=== PATIENT | female | born 1995 | race Caucasian/White ===

== ENCOUNTER 2017-06-22 10:18 | Emergency (ER) | payer BC, MEDICAID ==
[~2017-06-22] VITALS: Ht 154.9 cm; Wt 68.0 kg
[~2017-06-22 10:18] MED LIST: ACHYD1T PO; CEPH250C PO; CEPH500T PO; DCS100C PO; IBP800T PO; METR500T21 PO; MULT-383 PO; NITR-65 PO; PHEN-639 PO; PREN-93 PO
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
[2017-06-22] MEDS ORDERED: HYDROcodone/APAP 5 MG/325 MG (LORTAB) TAB PO STA (12:48)
[2017-06-22] MEDS ORDERED: HYDR-3812 PO (13:02)
[2017-06-22] MEDS ORDERED: CIPR-225 PO (13:02)
[2017-06-22] MEDS ORDERED: CIPROFLOXACIN 500 MG (CIPRO) TABLET PO STA (13:04)
[2017-06-22 13:34] VITALS: BP 127/74
== END 2017-06-22 13:34 | disposition home or self-care (01) ==
LOC: EDUNIT# 10:18 → ER 10:21
DX: S02.40DA Maxillary fracture, left side, initial encounter for closed fracture (principal); S02.2XXA Fracture of nasal bones, initial encounter for closed fracture; S00.81XA Abrasion of other part of head, initial encounter; Z87.891 Personal history of nicotine dependence; Z98.890 Other specified postprocedural states; Y04.2XXA Assault by strike against or bumped into by another person, initial encounter
CPT/HCPCS: 70450; 70486; 72125; 99283

== ENCOUNTER → 2018-05-14 | Outpatient (CLI) | payer BC ==
[~2018-05-14] MED LIST changes: +ACHD5005 PO; +CIPR-225 PO; +METR-197 PO; -METR500T21 PO
--- NOTE | 2018-05-14 11:48 | Diagnostic Imaging Report ---
INDICATION: survey. TECHNIQUE: Multiple real-time grayscale images were obtained over the gravid uterus. COMPARISON: 02/26/2018. FINDINGS: The previous OB ultrasound exam of 02/26/2018 noted a single live intrauterine at approximately 8 weeks 6 days gestation +/-1 week. On this study, the fetus is again visualized. The fetus is in transverse presentation and heart motion was noted with a rate of 138 BPM. The four-chamber heart view however is less than optimal. The lower lumbar spine and the cord insertion were also poorly visualized. I would recommend that a short-term (4-6 week) followup exam be performed for further evaluation. The growth parameters are fairly uniform and have progressed as expected since the prior exam. The placenta is anterior and there is no previa. The amniotic fluid volume is within normal limits. Biometrical measurements are as follows: Biparietal 4.39 cm, age 19 weeks 2 days. Head circumference 17.32 cm, age 20 weeks 0 days. Abdominal circumference 15.55 cm, age 20 weeks 6 days. Femur length 3.18 cm, age 20 weeks 0 days. Sonographic estimate age: 20 weeks 1 days. Sonographic estimated date of delivery: 09/30/18. Estimated Weight: 342 gm (+/- 50 gm). LMP percentile: 69%. heart rate: 138 beats per minute. number: 1 of 1. IMPRESSION: 1. There is a single live fetus at approximately 19 weeks 6 days gestation +/-1 week. The EDC remains October 02, 2018. 2. There were no abnormalities identified but the four-chamber heart view, the cord insertion, and the lower spine were not well visualized. Recommendations, as above. 3. The growth parameters have progressed as expected since the prior exam. Dictated by: Dictated on workstation # [id number]
== END ==
LOC: RAD 09:33
PROVIDERS: ATTEND Family Medicine
DX: Z36.89 Encounter for other specified antenatal screening (principal); Z3A.19 19 weeks gestation of pregnancy
CPT/HCPCS: 76805

== ENCOUNTER → 2018-06-11 | Outpatient (CLI) | payer BC ==
--- NOTE | 2018-06-11 11:37 | Diagnostic Imaging Report ---
INDICATION: Followup survey TECHNIQUE: Multiple real-time grayscale images were obtained over the gravid uterus. COMPARISON: None 02/26/2018 and 05/14/2018 FINDINGS: The previous OB ultrasound exam performed on 05/14/2018 noted a single live fetus approximately 19 weeks 6 days gestation. There were no abnormalities identified but the four-chamber heart view the cord insertion and the lower spine were not well visualized. On this exam the fetus is again visualized. The fetu is now cephalic in presentation. heart motion was noted at a rate of 165 BPM was recorded. There were no abnormalities noted. In particular the four-chamber heart view, cord insertion and the spine are felt to be within normal limits. The growth parameters were not obtained for this exam. The placenta is anterior and there is no previa. The amniotic fluid volume is within normal limits. The cervix was identified measures 5.1 CM in length. IMPRESSION: 1. There is a single live fetus approximately 23 weeks 6 days gestation plus or minus one week. EDC remains 10/02/2018. 2. There were no abnormalities identified. Biometrical measurements are as follows: Biparietal cm, age weeks days. Head circumference cm, age weeks days. Abdominal circumference cm, age weeks days. Femur length cm, age weeks days. Sonographic estimate age: weeks days. Sonographic estimated date of delivery: . Estimated Weight: gm (+/- gm). LMP percentile: %. heart rate: beats per minute. number: of . IMPRESSION: Dictated by: Dictated on workstation # [id number]
== END ==
LOC: RAD 09:31
PROVIDERS: ATTEND Family Medicine
DX: Z36.89 Encounter for other specified antenatal screening (principal); Z3A.23 23 weeks gestation of pregnancy
CPT/HCPCS: 76816

== ENCOUNTER 2018-07-12 09:08 | Outpatient (CLI) | payer BC, MEDICAID ==
--- NOTE | 2018-07-12 09:20 | NUR ---
MIREILLE JOHNSON presented to unit via AMBULATION from HOME, accompanied by S/O, with c/o RH NEGATIVE. MIREILLE JOHNSON weighed, voided, and to bed.
--- NOTE | 2018-07-12 10:10 | NUR ---
RHOGAM ADMINISTERED PER ORDER, NO DISTRESS NOTED, NO QUESTIONS OR CONCERNS NOTED, SEE INTERVENTIONS FOR DOCUMENTATION. PT AMBULATED OFF FLOOR WITH S/O AT SIDE, ROUTINE CARE TO FOLLOW.
--- NOTE | 2018-07-12 10:10 | NUR ---
MIREILLE JOHNSON presented to unit via from ED, accompanied by [], with c/o RH NEGATIVE. MIREILLE JOHNSON weighed, gowned, voided, and to bed. EFHM and TOCO applied, VS taken. MIREILLE JOHNSON oriented to bed controls, call light, TV, heat, and A/C controls. Addendum: 07/12/18 at 1025 by BERNA MENENDEZ RN error, duplicate correct time of arrival 1490
== END 2018-07-12 10:10 | disposition home or self-care (01) ==
LOC: WSo 09:08
PROVIDERS: ATTEND Family Medicine
DX: Z31.82 Encounter for Rh incompatibility status (principal)
CPT/HCPCS: 96372

== ENCOUNTER 2018-09-23 08:39 | Outpatient (CLI) | payer BC, MEDICAID ==
[~2018-09-23] VITALS: Ht 154.9 cm; Wt 104.8 kg
[~2018-09-23 08:39] MED LIST changes: +METR-145 PO; -METR-197 PO
[2018-09-23 08:51] VITALS: BP 127/77
[2018-09-23] MEDS ORDERED: PREN-8 PO (09:09)
[2018-09-26] MEDS ORDERED: DOCU100C37 PO (07:55)
[2018-09-26] MEDS ORDERED: IBUP-1780 PO (07:55)
[2018-09-26] MEDS ORDERED: OXYC1TAB12 PO (07:55)
== END 2018-09-23 09:01 | disposition home or self-care (01) ==
LOC: PREOP 08:39
PROVIDERS: ATTEND Obstetrics & Gynecology
DX: Z01.818 Encounter for other preprocedural examination (principal)
CPT/HCPCS: 87081

== ENCOUNTER 2018-09-25 08:45 | Inpatient (IN) | payer BC, MEDICAID ==
[~2018-09-25] VITALS: Ht 154.9 cm; Wt 105.2 kg
[~2018-09-25 08:45] MED LIST changes: +PREN-8 PO
--- NOTE | 2018-09-25 09:55 | NUR ---
MIREILLE JOHNSON presented to unit via ambulation, accompanied by , for scheduled repeat c/s. Pt weighed, gowned, voided, and to bed. EFHM and TOCO applied, VS taken. Pt. oriented to bed controls, call light, TV, heat, and A/C controls. Addendum: 09/25/18 at 1854 by DAVID KNOX RN error-duplicate entry.
--- NOTE | 2018-09-25 09:55 | NUR ---
MIREILLE JOHNSON presented to unit via ambulation, accompanied by , with c/o previous c/s. Pt. weighed, gowned, voided, and to bed. EFHM and TOCO applied, VS taken. Pt. oriented to bed controls, call light, TV, heat, and A/C controls.
[2018-09-25] MEDS ORDERED: LACTATED RINGERS 1,000 ML IV PRN (10:39)
[2018-09-25] MEDS ORDERED: D5 LR IV SOLUTION 1,000 ML IV SCH (10:41)
[2018-09-25] MEDS ORDERED: FAMOTIDINE 20MG/2ML IV (PEPCID) IV ONE ×2 (10:45→11:45)
[2018-09-25] MEDS ORDERED: metroNIDAZOLE 500MG/100ML IVPB 100 ML IV ONE ×2 (10:45)
[2018-09-25] MEDS ORDERED: ceFAZolin 2 GM IV Premixed 50 ML IV ONE ×2 (10:45→11:00)
[2018-09-25] MEDS ORDERED: CITRIC ACID/SOB CIT (BICITRA) 30 ML UDC PO ONE ×2 (10:45→11:45)
[2018-09-25] MEDS ORDERED: METOCLOPRAMIDE INJ 10 MG/2 ML (REGLAN) IV ONE ×2 (10:45→11:45)
--- NOTE | 2018-09-25 10:59 | NUR ---
#20g IV to Lt.hand x1 attempt by UNA Joshi. site patent, secured with opsite. admission labs collected prior to LR bolus infusing. x2 unsuccessful attempts by this RN.
[2018-09-25 11:09] LABS: BASOPHILS % (AUTO) 0 % (0-10); EOSINOPHILS # (AUTO) 0.1 10^3/uL (0.0-0.3); EOSINOPHILS % (AUTO) 1 % (0-10); HEMATOCRIT 41 % (35-52); HEMOGLOBIN 14.1 G/DL (11.5-16.0); LYMPHOCYTES % (AUTO) 19 % (12-44); MEAN CORPUSCULAR HEMOGLOBIN 29 PG (25-34); MEAN CORPUSCULAR HGB CONC 34 G/DL (32-36); MEAN CORPUSCULAR VOLUME 86 FL (80-99); MEAN PLATELET VOLUME 10.6 FL (7.4-10.4); MONOCYTES # (AUTO) 1.1 X 10^3 (0.0-1.0); MONOCYTES % (AUTO) 10 % (0-12); NEUTROPHILS # (AUTO) 7.4 X 10^3 (1.8-7.8); NEUTROPHILS % (AUTO) 70 % (42-75); PLATELET COUNT 222 10^3/uL (130-400); RED CELL DISTRIBUTION WIDTH 14.7 % (10.0-14.5); WHITE BLOOD COUNT 10.6 10^3/uL (4.3-11.0)
[2018-09-25] MEDS ORDERED: LACTATED RINGERS 1,000 ML IV SCH ×2 (11:36)
[2018-09-25 11:45] VITALS: BP 131/85
[2018-09-25] MEDS ORDERED: BUPIVACAINE SPINAL 0.75% (SENSORCAINE) 2 ML AMP ONE (11:46)
[2018-09-25] MEDS ORDERED: LIDOCAINE PF 2% 5 ML (XYLOCAINE) VIAL ONE (11:46)
[2018-09-25] MEDS ORDERED: OXYTOCIN/NORMAL SALINE 1,000 ML IV ONE (11:46)
[2018-09-25] MEDS ORDERED: fentaNYL INJECTION 100 MCG/2 ML AMP ONE (11:46)
--- NOTE | 2018-09-25 11:46 | NUR ---
pre-op medications given, see eMar for further. here.
--- NOTE | 2018-09-25 12:01 | NUR ---
monitors dc'd. pt ambulated to OB c/s room with OR staff @ side.
[2018-09-25] MEDS ORDERED: ONDANSETRON 4 MG/2 ML (SDV) Z0FRAN ONE (12:33)
[2018-09-25] MEDS ORDERED: BUPIVACAINE 0.5% 30 ML (SENSORCAINE) VIAL ONE (12:34)
[2018-09-25] MEDS ORDERED: PHENYLEPHRINE 100 MCG/ML 10 ML (ANESTHESIA) SYR ONE (12:39)
[2018-09-25] MEDS: KETOROLAC 30 MG/ML VIAL IVP SCH ×2 (12:47→19:54)
[2018-09-25] MEDS ORDERED: KETOROLAC 30 MG/ML VIAL ONE (12:50)
[2018-09-25] MEDS ORDERED: OXYTOCIN/NORMAL SALINE 500 ML IV SCH (13:24)
[2018-09-25] MEDS ORDERED: MEPERIDINE (DEMEROL) INJ 100 MG/ML IM PRN (13:30)
[2018-09-25] MEDS ORDERED: ONDANSETRON 4 MG/2 ML (SDV) Z0FRAN IVP PRN (13:30)
[2018-09-25] MEDS ORDERED: PROMETHAZINE INJ 25 MG/ML (PHENERGAN) AMP IM PRN (13:30)
[2018-09-25] MEDS ORDERED: TETANUS,DIPTH,PERTUSS P/F (BOOSTRIX) 0.5 ML VIAL IM ONE (13:30)
[2018-09-25] MEDS ORDERED: MEASLES,MUMPS,RUBELLA 1 EA INJ SC ONE (13:30)
[2018-09-25] MEDS ORDERED: D5 LR IV SOLUTION 1,000 ML IV ONE (13:32)
--- NOTE | 2018-09-25 15:00 | NUR ---
THIS RN AT BEDSIDE, PHYSICAL ASSESSMENT COMPLETE, PT DENIES NEEDS AT THIS TIME, CALL LIGHT WITHIN REACH.
[2018-09-25 16:00] VITALS: BP 123/59
--- NOTE | 2018-09-25 16:30 | NUR ---
RT AT BEDSIDE FOR IS INSTRUCTIONS. RPT CURRENTLY . RT UNABLE TO DO IS INSTRUCTIONS AT THIS TIME.
--- NOTE | 2018-09-25 18:44 | NUR ---
PT UP TO BATHROOM WITH NO COMPLICATIONS. VOID 900ML. PERICARE PROVIDED.
[2018-09-25] MEDS ORDERED: FLU QUADRIvalent (5+ YOA) 2018-2019 (AFLURIA) 0.5 ML IM ONE (19:00)
--- NOTE | 2018-09-25 19:10 | NUR ---
PT REPORT GIVEN TO BUCK Cristobal RN
[2018-09-25 19:53] VITALS: BP 120/59
--- NOTE | 2018-09-25 21:22 | OPERATIVE REPORT ---
DATE OF SERVICE: 09/25/2018 PREOPERATIVE DIAGNOSIS: Term at 39 weeks' gestation with previous . POSTOPERATIVE DIAGNOSIS: Term at 39 weeks' gestation with previous . OPERATIVE PROCEDURE: Repeat low transverse delivery of a viable male with Apgars of 8 and 9 at 1 and 5 minutes respectively. Weight of 7 pounds 7 ounces. Cord blood pH of 7.34 and a time of 12:27. FLEA MARKET SELLER FOR DELIVERY: Dr. Tran. CENTRAL OFFICE INSTALLER FOR DELIVERY: Dr. Tran. OPERATIVE DESCRIPTION: With the patient in the supine position under satisfactory spinal anesthesia, she was prepped and draped in the usual fashion for abdominal surgery. Cedillo catheter was placed in the urinary bladder. A repeat Pfannenstiel incision was made through the skin with a scalpel at the site of the patient's previous Pfannenstiel incisional scar. The abdomen was entered in the usual manner. Bladder retractor placed in position, clean scalpel used to make a 4 cm hysterotomy incision transversely across the lower uterine segment that was extended by blunt dissection as well, releasing a fair amount of clear amniotic fluid. Gerard forceps were applied to facilitate the delivery of a vigorous viable male . The was bulb suctioned on delivery of the head and again on completion of delivery. The umbilical cord was doubly clamped and cut and then the infant taken to the warmer by Dr. Tran, the car pincher in attendance. Cord bloods were obtained. The placenta was delivered spontaneously Ozuna. It was normal with a 3-vessel cord. The uterus was exteriorized and interior wiped clean with a wet laparotomy sponge. Uterine incision closed with running locked suture of 2-0 Vicryl. Hemostasis was complete. The uterus was returned to the abdominal cavity. All blood clot and debris were removed from the abdominal cavity. With sponge and needle counts correct, hemostasis assured, the anterior parietal peritoneum was closed with a running suture of 2-0 Vicryl. Rectus muscles were closed with that suture as well. Rectus fascia was closed with 2-0 Vicryl, subcutaneous tissue with 2-0 Vicryl and the skin was stapled. Sponge and needle counts were correct on completion of the procedure. Estimated blood loss was around 600 mL. The patient tolerated the procedure well and was transferred to the recovery room in stable condition. The infant had been taken stable to the full term nursery under the care of Dr. Tran. Job ID: [id number] DocumentID: [id number] Dictated Date: 09/25/2018 13:03:15 Tech Intern Date: 09/25/2018 21:21:31 Dictated By: MARK JERNIGAN MD
[2018-09-25] MEDS: DOCUSATE SODIUM 100 MG (COLACE) CAP PO SCH (21:36)
--- NOTE | 2018-09-26 01:00 | NUR ---
Mom is up and walking halls. States that she wanted to get up and walk when she was feeling good. Tolerating well. S.O. at side.
[2018-09-26 01:10] VITALS: BP 113/54
[2018-09-26] MEDS: oxyCODONE/APAP 10/325MG (PERCOCET 10) TABLET PO PRN ×2 (01:10→16:50)
[2018-09-26] MEDS: KETOROLAC 30 MG/ML VIAL IVP SCH (02:00)
[2018-09-26 04:30] VITALS: BP 112/62
--- NOTE | 2018-09-26 07:47 | NUR ---
here to see pt. pending D/C orders received.
--- NOTE | 2018-09-26 07:54 | Progress Note-Standard ---
Standard Progress Note Progress Notes/Assess & Plan Date Seen by a Provider: Sep 26, 2018 Time Seen by a Provider: 07:52 Progress/Assessment & Plan This patient is without complaint. She is ambulating, voiding, tolerating oral intake well and has good pain control. Patient denies chest pain, denies shortness of breath, and denies nausea vomiting. Vital Signs Date Time Temp Pulse Resp B/P (MAP) Pulse Ox O2 Delivery O2 Flow Rate FiO2 09/26/18 04:30 98.9 80 16 112/62 (79) 96 Room Air 09/26/18 01:10 98.8 72 18 113/54 (73) 96 Room Air 09/25/18 19:53 99.1 81 18 120/59 (79) 95 Room Air 09/25/18 19:13 Room Air 09/25/18 16:00 98.4 80 16 123/59 (80) 96 Room Air 09/25/18 11:45 97.1 96 18 131/85 (100) 98 Room Air I & O 09/26/18 07:00 Intake Total 3750 ml Output Total 2490 ml Balance 1260 ml Vital signs are stable. Patient is afebrile. Fundus is firm below the umbilicus and nontender. The surgical incision is clean dry and intact Extremities show no clubbing or cyanosis. There is no Homans sign. Assessment and plan postoperative day number 1 status post 39 week repeat delivery. Patient is doing well and will have routine convalescence care today and consider for discharge home tomorrow MARK JERNIGAN MD Sep 26, 2018 07:54
[2018-09-26] MEDS ORDERED: DOCU100C37 PO (07:55)
[2018-09-26] MEDS ORDERED: OXYC1TAB12 PO (07:55)
[2018-09-26] MEDS ORDERED: IBUP-1780 PO (07:55)
--- NOTE | 2018-09-26 07:57 | Discharge Instructions ---
Discharge Instructions Discharge Medications New, Converted or Re-Newed RX: RX on Chart Patient Instructions Patient Instructions: As directed Return to The Hospital For: as directed Activity & Diet Discharge Diet: No Restrictions Activity as Tolerated: No Orders-Post D/C & Referrals Follow Up Appt: RTC 1 week for incision check with Dr. Valdez Call to make follow up appt. for patient in [address] Tran. Wound Care: Remove rebecca, apply benzoin and steri strips. Activity Per routine post instructions. Please call in RX to patient pharmacy. Diet as tolerated Patient may shower or tub bathe as desired. Continue home meds MARK VALDEZ MD Sep 26, 2018 07:57
[2018-09-26] MEDS ORDERED: IBUPROFEN 800 MG (MOTRIN) TAB PO ONE (09:09)
[2018-09-26] MEDS: DOCUSATE SODIUM 100 MG (COLACE) CAP PO SCH ×2 (09:12→21:36)
[2018-09-26] MEDS: IBUPROFEN 800 MG (MOTRIN) TAB PO SCH ×3 (09:13→20:04)
--- NOTE | 2018-09-26 09:15 | NUR ---
initial shift assessment completed, see interventions for further. abd incision ADILENE with clips D/I. incision edges well approximated, no sx's of infection noted.
[2018-09-26 14:10] VITALS: BP 119/67
--- NOTE | 2018-09-26 14:10 | NUR ---
vs taken. infant attempting to breast feed.
--- NOTE | 2018-09-26 14:11 | NUR ---
Rhogam IM given in Lt.AT.
--- NOTE | 2018-09-26 14:19 | Anesthesia-Regional Post-Op ---
Regional Patient Condition Mental Status: Alert, Oriented x3 Circulation: Same as Pre-Op Headache: Absent Sensation: Full Recovery Motor Block: Absent Post Op Complications Complications None Follow Up Care/Instructions Patient Instructions None needed. Anesthesia/Patient Condition Patient is doing well, no complaints, stable vital signs, no apparent adverse anesthesia problems. No complications reported per nursing. KVNG CRUZ CRNA Sep 26, 2018 14:19
--- NOTE | 2018-09-26 16:50 | NUR ---
Percocet 2 tabs p.o. given per pt's request for incisional pain. remains @ side.
--- NOTE | 2018-09-26 19:30 | NUR ---
report given to next shift.
[2018-09-26 20:08] VITALS: BP 136/73
[2018-09-26] MEDS ORDERED: FLU QUADRIvalent (5+ YOA) 2018-2019 (AFLURIA) 0.5 ML IM ONE (21:26)
[2018-09-26] MEDS ORDERED: TETANUS,DIPTH,PERTUSS P/F (BOOSTRIX) 0.5 ML VIAL IM ONE (21:26)
[2018-09-27] MEDS: IBUPROFEN 800 MG (MOTRIN) TAB PO SCH (01:56)
[2018-09-27 02:00] VITALS: BP 121/64
--- NOTE | 2018-09-27 07:53 | Progress Note-Standard ---
Standard Progress Note Progress Notes/Assess & Plan Date Seen by a Provider: Sep 27, 2018 Time Seen by a Provider: 07:52 Progress/Assessment & Plan This patient is without complaint. She is ambulating, voiding, tolerating oral intake well and has good pain control. Patient denies chest pain, denies shortness of breath, and denies nausea vomiting. Vital Signs Date Time Temp Pulse Resp B/P (MAP) Pulse Ox O2 Delivery O2 Flow Rate FiO2 09/26/18 04:30 98.9 80 16 112/62 (79) 96 Room Air 09/26/18 01:10 98.8 72 18 113/54 (73) 96 Room Air 09/25/18 19:53 99.1 81 18 120/59 (79) 95 Room Air 09/25/18 19:13 Room Air 09/25/18 16:00 98.4 80 16 123/59 (80) 96 Room Air 09/25/18 11:45 97.1 96 18 131/85 (100) 98 Room Air I & O 09/26/18 07:00 Intake Total 3750 ml Output Total 2490 ml Balance 1260 ml Vital signs are stable. Patient is afebrile. Fundus is firm below the umbilicus and nontender. The surgical incision is clean dry and intact Extremities show no clubbing or cyanosis. There is no Homans sign. Assessment and plan postoperative day number 1 status post 39 week repeat delivery. Patient is doing well and will have routine convalescence care today and consider for discharge home tomorrow September 27, 2018 Patient without complaint. She is ambulating, voiding, tolerating oral intake well has good pain control. Patient is ready requesting discharge home. Vital Signs Date Time Temp Pulse Resp B/P (MAP) Pulse Ox O2 Delivery O2 Flow Rate FiO2 09/27/18 02:00 98.4 71 16 121/64 (83) 96 Room Air 09/26/18 20:08 98.4 88 16 136/73 (94) 96 Room Air 09/26/18 14:10 98.0 83 18 119/67 (84) 96 Room Air I & O 09/27/18 07:00 Intake Total 900 ml Output Total 1600 ml Balance -700 ml Vital signs are stable. Patient afebrile. Fundus is firm below the umbilicus and nontender. The incision is clean dry and intact. Extremities show no clubbing cyanosis. There is no Homans sign. Assessment and plan postoperative day number 2 status post repeat delivery at 39+ weeks' gestation. Patient will be discharged home with follow- up in clinic MARK JERNIGAN MD Sep 27, 2018 07:53
[2018-09-27 08:00] VITALS: BP 116/68
[2018-09-27] MEDS: DOCUSATE SODIUM 100 MG (COLACE) CAP PO SCH (08:22)
--- NOTE | 2018-09-27 10:45 | NUR ---
Discharged to home. Pt ambulated to exit, father of baby carrying baby in car seat. Chest strap tightened. Prescription, instructions and appointment with pt.
--- NOTE | 2018-10-02 11:59 | Physician Query-Final Dx ---
LELIA COWART 10/02/18 1159: Final Diagnosis Give Final Diagnosis Please give Final Diagnosis MARK JERNIGAN MD 10/02/18 1426: Final Diagnosis Give Final Diagnosis Pelvic pain and LELIA COWART Oct 02, 2018 11:59 MARK JERNIGAN MD Oct 02, 2018 14:26
== END 2018-09-27 11:45 | disposition home or self-care (01) | DRG 788 ==
LOC: LDRP 09:55
PROVIDERS: ADMIT Obstetrics & Gynecology; ATTEND Obstetrics & Gynecology
PROC: 10D00Z1 Extraction of Products of Conception, Low, Open Approach (ICD-10-PCS; principal; 2018-09-25 12:03)
DX: O34.211 Maternal care for low transverse scar from previous cesarean delivery (principal); Z3A.39 39 weeks gestation of pregnancy; Z37.0 Single live birth; Z87.891 Personal history of nicotine dependence; Z88.1 Allergy status to other antibiotic agents
CPT/HCPCS: 36415; 83033; 85025; 86850; 86900; 86901; 88307; 90686; 90715; 94664

== ENCOUNTER 2018-10-25 05:07 | Emergency (ER) | payer BC, MEDICAID ==
[~2018-10-25] VITALS: Ht 154.9 cm; Wt 89.8 kg
[~2018-10-25 05:07] MED LIST changes: +DOCU100C37 PO; +IBUP-1780 PO; +OXYC1TAB12 PO
--- NOTE | 2018-10-25 05:42 | ED Upper Extremity ---
General Stated Complaint: RT HAND INJURY Source: patient History of Present Illness Date Seen by Provider: Oct 25, 2018 Time Seen by Provider: 05:35 Initial Comments PT ARRIVES VIA POV STATES SHE GOT UP AT 0445 TO GO TO THE BATHROOM, STUBBED HER TOE, THEN GOT MAD BECAUSE SHE STUBBED HER TOE, SO SHE PUNCHED THE WALL WITH HER RIGHT HAND NOW C/O PAIN AND SWELLING TO RIGHT HAND OVER 5TH METACARPAL AREA NO C/O PAIN TO TOE AT THIS TIME NO PARESTHESIAS OR MOTOR DEFICITS NO PRIOR INJURY TO THIS HAND PT IS RIGHT HANDED PT DELIVERED 4 WEEKS AGO VIA STILL SPOTTING OFF AND ON NO CONTROL PT IS PCP: DR. MCBRIDE Allergies and Home Medications Allergies Coded Allergies: Penicillins (Unverified Allergy, Unknown, 03/05/16) Reports that her brother is allergic, so she doesn't want to take a chance with it. Home Medications Hydrocodone Bit/Acetaminophen 1 Tab Tab, 1 EACH PO Q4H PRN for PAIN-MODERATE Prescribed by: JAMES BIANCHI on 10/25/18 0550 Ibuprofen 800 Mg Tablet, 800 MG PO Q6H Prescribed by: MARK LAZCANO on 09/26/18 0755 Patient Home Medication List Home Medication List Reviewed: Yes Review of Systems Constitutional: no symptoms reported Musculoskeletal: see HPI Skin: no symptoms reported Psychiatric/Neurological: No Symptoms Reported Past Jtkdrhi-Hclgjz-Kkcule Hx Patient Social History Smoking Status: Current Everyday Smoker Type Used: Cigarettes Recent Foreign Travel: No Contact w/Someone Who Travel: No Recent Hopitalizations: No Immunizations Up To Date Tetanus Booster (TDap): Unknown PED Vaccines UTD: Yes Seasonal Allergies Seasonal Allergies: Yes Past Medical History Surgeries: Yes (hymenectoy, wisdom teeth) Section Respiratory: No Cardiac: No Neurological: No Reproductive Disorders: No Genitourinary: No Gastrointestinal: No Musculoskeletal: No Endocrine: No HEENT: No Cancer: No Psychosocial: No Integumentary: No Blood Disorders: No Adverse Reaction/Blood Tranf: No Family Medical History Arthritis 19 FATHER, Onset:40's - 50 No Family History of: AIDS Abdominal aortic aneurysm [place]'s disease Alcoholism Alzheimer's disease Aphasia Asthma Cancer of mouth Cardiovascular disease Cataracts Colon cancer Completed stroke Congenital disease Congenital heart disease Coronary thrombosis Cystic fibrosis Deafness or hearing loss Dementia Diabetes mellitus Drug abuse Dysphasia Fibrocystic disease of breast Gastroenteritis Glaucoma Headache disorder Hypercholesterolemia Hypertension Infertility Kidney disease Myocardial infarction Neoplasm Not obtainable due to adoption Osteoporosis Parkinson's disease Prostate cancer Psychosocial problem Respiratory disorder Seizure disorder Severe allergy Thyroid disease Tuberculosis Visual disorder No Pertinent Family Hx Physical Exam Vital Signs Vital Signs - First Documented 10/25/18 05:35 Temp 98.7 Pulse 93 Resp 18 B/P (MAP) 106/71 (83) Pulse Ox 96 O2 Delivery Room Air Capillary Refill : Height, Weight, BMI Height: 5'1.00" Weight: 232lbs. 0.0oz. 105.559513wt; 43.8 BMI Method:Stated General Appearance: WD/WN, no apparent distress Wrist: Yes normal inspection, Yes non-tender, Yes no evidence of injury Hand: Right (OVER 5TH METACARPAL AREA), bone tenderness, limited ROM, soft tissue tenderness, swelling Neurologic/Tendon: normal sensation, normal motor functions, normal tendon functions Neurologic/Psychiatric: twister tender II-XII nml as tested, no motor/sensory deficits, alert, normal mood/affect, oriented x 3 Skin: normal color, warm/dry Procedures/Interventions Splinting and Joint Reduction : Splints: Nano Wrist Progress/Results/Core Measures Results/Orders My Orders Orders - JAMES BIANCHI DO Hand, Right, 3 Views (10/25/18 05:38) [facility] Supplies Order (10/25/18 05:45) Rx-Hydrocodone/Apap 5-325 Mg (Rx-Vicodin (10/25/18 05:45) Vital Signs/I&O 10/25/18 05:35 Temp 98.7 Pulse 93 Resp 18 B/P (MAP) 106/71 (83) Pulse Ox 96 O2 Delivery Room Air Diagnostic Imaging Comments XRAYS RIGHT HAND--FX 5TH METACARPAL, PENDING RADIOLOGIST REVIEW Reviewed: Reviewed by Me Departure Impression Primary Impression: Closed fracture of fifth metacarpal bone of right hand Disposition: HOME, SELF-CARE Condition: Stable Departure-Patient Inst. Referrals: JANNETTE EASTON DANIEL J MD (PCP/Family) Primary Care Physician Patient Instructions: Hand Fracture (DC), Cast Care Add. Discharge Instructions: ICE TO AREA AT 20 MINUTE INTERVALS ELEVATE HAND MUCH POSSIBLE WEAR SPLINT AT ALL TIMES FOLLOW UP WITH DR. EASTON/ORTHO 4 STATES IN 3-4 DAYS FOR FURTHER CARE Scripts Hydrocodone Bit/Acetaminophen (Hydrocodone/Acetaminophen 5/325mg Tablet) 1 Tab Tab 1 EACH PO Q4H PRN for PAIN-MODERATE MDD 10, #20 TAB Prov: JAMES BIANCHI DO 10/25/18 JAMES BIANCHI DO Oct 25, 2018 05:42
[2018-10-25] MEDS ORDERED: RX-HYDROCODONE/APAP 5/325 MG #4 TAB PK PO PRN (05:45)
[2018-10-25] MEDS ORDERED: ACHD5005 PO (05:50)
[2018-10-25 05:53] VITALS: BP 106/71
--- NOTE | 2018-10-25 07:18 | Diagnostic Imaging Report ---
Clinical indication: Patient punched a wall. Exam: X-ray of the right hand, 3 views. Comparison: None. Findings: There is a transverse fracture of the distal diaphysis of the fifth metacarpal bone with dorsal apex angulation. There is soft tissue swelling adjacent to the region. There is no other fracture or dislocation seen on this exam. The remainder of the right hand is unremarkable. Impression: There is a fracture of the distal diaphysis of the fifth metacarpal bone with dorsal apex angulation. There is adjacent soft tissue swelling. Dictated by: Dictated on workstation # [id number]
== END 2018-10-25 05:53 | disposition home or self-care (01) ==
LOC: EDUNIT# 05:07 → ER 05:10
DX: O9A.23 Injury, poisoning and certain other consequences of external causes complicating the puerperium (principal); S62.306A Unspecified fracture of fifth metacarpal bone, right hand, initial encounter for closed fracture; O99.335 Smoking (tobacco) complicating the puerperium; F17.210 Nicotine dependence, cigarettes, uncomplicated; Z88.0 Allergy status to penicillin; Z98.890 Other specified postprocedural states; W22.09XA Striking against other stationary object, initial encounter
CPT/HCPCS: 73130

== ENCOUNTER 2019-07-06 21:44 | Emergency (ER) | payer BC, MEDICAID ==
[~2019-07-06] VITALS: Ht 154.9 cm; Wt 84.4 kg
--- NOTE | 2019-07-06 22:11 | ED Cough/URI ---
General Chief Complaint: Cough/Cold/Flu Symptoms Stated Complaint: COUGH, DIZZINESS ABOUT 7 WKS Nursing Triage Note: PT AMBULATE TO TRIAGE WITH C/O COUGH/SOB STARTING X2 WEEKS AGO. PT REPORTS SHE WAS NOT ABLE TO GET INTO PCP SINCE SHE WORKS SO MUCH. PT STATES THE VOICE LOSS STARTED TODAY. Sepsis Screen: No Definite Risk Source: patient Exam Limitations: no limitations History of Present Illness Date Seen by Provider: Jul 06, 2019 Time Seen by Provider: 22:08 Initial Comments To ER with a two-week history of cough shortness of breath. She has intermittent chills. States that she is about 6 or 7 weeks gestation. Has lost her voice today. States that she was on steroids last week. Has a nebulizer at home. Quit smoking yesterday. Timing/Duration: constant, getting worse Severity/Quality: dry cough Modifying Factors: Worse With Activity Associated Symptoms: cough, shortness of breath Allergies and Home Medications Allergies Coded Allergies: Penicillins (Unverified Allergy, Unknown, 03/05/16) Reports that her brother is allergic, so she doesn't want to take a chance with it. Home Medications Acetaminophen with Codeine 1 Each Tablet, 1 EACH PO Q6H PRN for COUGH Prescribed by: RORY KING on 07/06/192234 Azithromycin 250 Mg Tablet, 250 MG PO DAILY Prescribed by: RORY KING on 07/06/192234 Hydrocodone Bit/Acetaminophen 1 Tab Tab, 1 EACH PO Q4H PRN for PAIN-MODERATE Prescribed by: JAMES BIANCHI on 10/25/18 0550 Ibuprofen 800 Mg Tablet, 800 MG PO Q6H Prescribed by: MARK LAZCANO on 09/26/18 0755 Prednisone 10 Mg Tab.ds.pk, 10 MG PO DAILY Take 6 tabs(60mg)daily,decrease by 1 tab(10MG)daily. Prescribed by: RORY KING on 07/06/192234 Patient Home Medication List Home Medication List Reviewed: Yes Review of Systems Review of Systems Constitutional: see HPI, chills, diaphoresis, malaise, weakness EENTM: nose congestion Respiratory: see HPI, cough, short of breath, wheezing Genitourinary: no symptoms reported Musculoskeletal: no symptoms reported Skin: no symptoms reported Psychiatric/Neurological: No Symptoms Reported Hematologic/Lymphatic: No Symptoms Reported Past Qlburuh-Owbjjb-Bigmiu Hx Patient Social History Alcohol Use: Past History Recreational Drug Use: No Smoking Status: Former Smoker Type Used: Cigarettes Former Smoker, Quit: Jun 27, 2019 2nd Hand Smoke Exposure: Yes Recent Foreign Travel: No Contact w/Someone Who Travel: No Recent Infectious Disease Expo: No Recent Hopitalizations: No Physical Abuse: No Sexual Abuse: No Mistreated: No Fear: No Immunizations Up To Date Tetanus Booster (TDap): Unknown PED Vaccines UTD: Yes Seasonal Allergies Seasonal Allergies: Yes Past Medical History Surgeries: Yes (hymenectoy, wisdom teeth) Section Respiratory: No Cardiac: No Neurological: No Reproductive Disorders: No Genitourinary: No Gastrointestinal: No Musculoskeletal: No Endocrine: No HEENT: No Cancer: No Psychosocial: No Integumentary: No Blood Disorders: No Adverse Reaction/Blood Tranf: No Family Medical History Arthritis 19 FATHER, Onset:40's - 50 No Family History of: AIDS Abdominal aortic aneurysm [place]'s disease Alcoholism Alzheimer's disease Aphasia Asthma Cancer of mouth Cardiovascular disease Cataracts Colon cancer Completed stroke Congenital disease Congenital heart disease Coronary thrombosis Cystic fibrosis Deafness or hearing loss Dementia Diabetes mellitus Drug abuse Dysphasia Fibrocystic disease of breast Gastroenteritis Glaucoma Headache disorder Hypercholesterolemia Hypertension Infertility Kidney disease Myocardial infarction Neoplasm Not obtainable due to adoption Osteoporosis Parkinson's disease Prostate cancer Psychosocial problem Respiratory disorder Seizure disorder Severe allergy Thyroid disease Tuberculosis Visual disorder No Pertinent Family Hx Physical Exam Vital Signs - First Documented 07/06/19 22:22 Pulse Ox 98 Capillary Refill : Less Than 3 Seconds Height: 5'1.00" Weight: 198lbs. 0.0oz. 89.959747pd; 35.00 BMI Method:Stated General Appearance: WD/WN, no apparent distress Eyes: Bilateral Eye Normal Inspection, Bilateral Eye PERRL, Bilateral Eye EOMI HEENT: PERRL/EOMI, normal ENT inspection, TM abnormal (L) (erythematous bulging) Respiratory: no respiratory distress, no accessory muscle use, other (she is tachypneic with forced expiratory wheezing augmented during exam and diminished when distracted. Many of the wheezing sounds are upper airway however there is lower airway wheezing as well. For this reason I'll give steroids, DuoNeb treatment.) Gastrointestinal: normal bowel sounds, non tender, soft Neurologic/Psychiatric: alert, normal mood/affect, oriented x 3 Skin: normal color, warm/dry Progress/Results/Core Measures Suspected Sepsis Recent Fever Within 48 Hours: No Infection Criteria Present: None New/Unexplained Altered Menta: No Sepsis Screen: No Definite Risk SIRS Temperature: Pulse: 127 Respiratory Rate: 22 Blood Pressure 124 /74 Mean: 91 Results/Orders Lab Results Laboratory Tests Test 07/06/19 22:05 Range/Units Group A Streptococcus Screen NEGATIVE NEGATIVE Micro Results Microbiology 07/06/19 Throat Culture - Preliminary, Resulted No Beta Strep isolated 07/06/19 Influenza Types A,B Antigen (TU) - Final, Complete My Orders Orders - RORY KING APRN Azithromycin Tablet (Zithromax Tablet) (07/06/19 22:15) Albuterol/Ipra Inhalation Soln (Duoneb I (07/06/19 22:15) Svn Small Volume Nebulizer (07/06/19 22:06) Prednisone Tablet (Deltasone Tablet) (07/06/19 22:15) Influenza A And B Antigens (07/06/19 22:06) Rapid Strep A Screen (07/06/19 22:06) Acetaminophen/Codeine Tablet (Tylenol W/ (07/06/19 22:15) Albuterol Pre-Mix Nebs (Rt) (Proventil (07/06/19 22:15) Svn Small Volume Nebulizer (07/06/19 22:14) Medications Given in ED Vital Signs/I&O 07/06/19 07/06/19 07/06/19 07/06/19 21:52 21:52 22:22 22:49 Temp 37.1 Pulse 127 122 Resp 22 19 B/P (MAP) 124/74 (91) 124/65 Pulse Ox 98 100 O2 Delivery Room Air Room Air Room Air Room Air Capillary Refill : Less Than 3 Seconds Blood Pressure Mean: 91 Departure Communication (Admissions) 2228-she is receiving her 5 mg albuterol treatment. Respiratory rate has slowed to normal, lung sounds still slightly wheezy but much improved than during my last exam. Heart rate is high as expected at 1:30, oxygen 99%. She'll need a steroid taper, azithromycin for the left ear in infection of the etiology of her asthma exacerbation is likely viral. She has an adequate supply of nebulized albuterol ampules at home. I'll give Tylenol/codeine for cough suppression. 2243-oxygen saturation remains 96% room air, heart rate 124, still slightly wheezy but overall much improved. Respiratory rate is normal respiratory effort is normal. Impression Primary Impression: Asthma exacerbation Qualified Codes: J45.901 - Unspecified asthma with (acute) exacerbation Additional Impression: Qualified Codes: Z3A.01 - Less than 8 weeks gestation of Disposition: HOME, SELF-CARE Condition: Improved Departure-Patient Inst. Decision time for Depature: 22:31 Referrals: KAITLYN MCBRIDE MD (PCP/Family) Primary Care Physician Patient Instructions: Asthma in Adults Add. Discharge Instructions: 1. Steroids as directed 2. Antibiotics as directed 3. Cough medication as directed 4. Return to ER for any concerns. 5. Call your doctor tomorrow morning to make an appointment to be seen within the next 48 hours. All discharge instructions reviewed with patient and/or family. Voiced understanding. Scripts Azithromycin (Azithromycin) 250 Mg Tablet 250 MG PO DAILY, #4 TAB 0 Refills Prov: RORY KING APRN 07/06/19 Acetaminophen with Codeine (Tylenol with Codeine #3 Tablet) 1 Each Tablet 1 EACH PO Q6H PRN for COUGH for 7 Days, #10 TAB Prov: RORY KING APRN 07/06/19 Prednisone (Prednisone) 10 Mg Tab.ds.pk 10 MG PO DAILY, #21 EA Take 6 tabs(60mg)daily,decrease by 1 tab(10MG)daily. Prov: RORY KING APRN 07/06/19 Work/School Note: Work Release Form Date Seen in the Emergency Department: Jul 06, 2019 Return to Work: Jul 09, 2019 RORY KING APRN Jul 06, 2019 22:11
[2019-07-06] MEDS ORDERED: RT-ALBUTEROL/IPRATROPIUM 3 ML (DUONEB) VIAL INH ONE (22:15)
[2019-07-06] MEDS ORDERED: RT-ALBUTEROL SULF 2.5 MG/3 ML PRE-MIX VIAL INH ONE (22:15)
[2019-07-06] MEDS ORDERED: predniSONE 20 MG TAB PO ONE (22:15)
[2019-07-06] MEDS ORDERED: APAP 300 MG/CODEINE 30 MG (TYLENOL #3) TAB PO ONE (22:15)
[2019-07-06] MEDS ORDERED: AZITHROMYCIN 250 MG TAB (ZITHROMAX) PO SCH (22:15)
[2019-07-06] MEDS ORDERED: PRED10TA22 PO (22:35)
[2019-07-06] MEDS ORDERED: AZIT250T12 PO (22:35)
[2019-07-06] MEDS ORDERED: ACET-789 PO (22:35)
[2019-07-06 22:49] VITALS: BP 124/65
== END 2019-07-06 22:49 | disposition home or self-care (01) ==
LOC: EDUNIT# 21:44 → ER 21:47
DX: O99.511 Diseases of the respiratory system complicating pregnancy, first trimester (principal); J45.901 Unspecified asthma with (acute) exacerbation; Z3A.01 Less than 8 weeks gestation of pregnancy; Z88.0 Allergy status to penicillin; Z79.52 Long term (current) use of systemic steroids; Z87.891 Personal history of nicotine dependence; Z77.22 Contact with and (suspected) exposure to environmental tobacco smoke (acute) (chronic)
CPT/HCPCS: 87430; 87804; 94640

== ENCOUNTER 2019-12-19 17:03 | Emergency (ER) | payer BC ==
[~2019-12-19] VITALS: Ht 154 cm; Wt 75.2 kg
[~2019-12-19 17:03] MED LIST changes: +ACET-789 PO; +AZIT250T12 PO; +PRED10TA22 PO
[2019-12-19] MEDS ORDERED: DOXY100T2 PO (17:34)
[2019-12-19] MEDS ORDERED: HYDR-3870 PO (17:34)
--- NOTE | 2019-12-19 17:34 | ED Integumentary General ---
General Chief Complaint: Skin/Wound Problems Stated Complaint: CYST RED SWOLLEN Nursing Triage Note: PT PRESENTS TO ED WITH COMLAINTS OF R LOWER ABDOMINAL WOUND AROUND A REDENED AREA OF SKIN. PT REPORTS SHE THINKS A CYST/ABCESS OPENED UP WHILE SHE WAS WORKING LAST NIGHT. Source: patient Exam Limitations: no limitations History of Present Illness Date Seen by Provider: Dec 19, 2019 Time Seen by Provider: 17:30 Initial Comments To ER with an abscess for a few days to the right anterior lower abdominal wall. It began draining two days ago. Abscess to right axilla as well. Timing/Duration: constant Severity: moderate Location: none Associated Symptoms: denies symptoms Allergies and Home Medications Allergies Coded Allergies: Penicillins (Unverified Allergy, Unknown, 03/05/16) Reports that her brother is allergic, so she doesn't want to take a chance with it. Home Medications Acetaminophen with Codeine 1 Each Tablet, 1 EACH PO Q6H PRN for COUGH Prescribed by: RORY KING on 07/06/192234 Azithromycin 250 Mg Tablet, 250 MG PO DAILY Prescribed by: RORY KING on 07/06/192234 Hydrocodone Bit/Acetaminophen 1 Tab Tab, 1 EACH PO Q4H PRN for PAIN-MODERATE Prescribed by: JAMES BIANCHI on 10/25/18 0550 Ibuprofen 800 Mg Tablet, 800 MG PO Q6H Prescribed by: MARK LAZCANO on 09/26/18 0755 Prednisone 10 Mg Tab.ds.pk, 10 MG PO DAILY Take 6 tabs(60mg)daily,decrease by 1 tab(10MG)daily. Prescribed by: RORY KING on 07/06/192234 Patient Home Medication List Home Medication List Reviewed: Yes Review of Systems Review of Systems Constitutional: see HPI EENTM: see HPI Respiratory: no symptoms reported Cardiovascular: no symptoms reported Genitourinary: no symptoms reported Musculoskeletal: no symptoms reported Skin: see HPI Psychiatric/Neurological: No Symptoms Reported Endocrine: No Symptoms Reported Past Lgipich-Yldndk-Ttxxfv Hx Patient Social History Alcohol Use: Rarely Uses Recreational Drug Use: Yes Drug of Choice: MARIJUANA Smoking Status: Current Everyday Smoker Type Used: Cigarettes Former Smoker, Quit: Jun 27, 2019 2nd Hand Smoke Exposure: Yes Recent Foreign Travel: No Contact w/Someone Who Travel: No Recent Infectious Disease Expo: No Recent Hopitalizations: No Physical Abuse: No Sexual Abuse: No Mistreated: No Fear: No Immunizations Up To Date Tetanus Booster (TDap): Unknown PED Vaccines UTD: Yes Seasonal Allergies Seasonal Allergies: Yes Past Medical History Surgeries: Yes (hymenectoy, wisdom teeth) Section Respiratory: Yes Asthma Cardiac: No Neurological: No Reproductive Disorders: No Genitourinary: No Gastrointestinal: No Musculoskeletal: No Endocrine: No HEENT: No Cancer: No Psychosocial: No Integumentary: No Blood Disorders: No Adverse Reaction/Blood Tranf: No Family Medical History Arthritis 19 FATHER, Onset:40's - 50 No Family History of: AIDS Abdominal aortic aneurysm [place]'s disease Alcoholism Alzheimer's disease Aphasia Asthma Cancer of mouth Cardiovascular disease Cataracts Colon cancer Completed stroke Congenital disease Congenital heart disease Coronary thrombosis Cystic fibrosis Deafness or hearing loss Dementia Diabetes mellitus Drug abuse Dysphasia Fibrocystic disease of breast Gastroenteritis Glaucoma Headache disorder Hypercholesterolemia Hypertension Infertility Kidney disease Myocardial infarction Neoplasm Not obtainable due to adoption Osteoporosis Parkinson's disease Prostate cancer Psychosocial problem Respiratory disorder Seizure disorder Severe allergy Thyroid disease Tuberculosis Visual disorder No Pertinent Family Hx Physical Exam Vital Signs Vital Signs - First Documented 12/19/19 17:20 Temp 37.5 Pulse 116 Resp 18 B/P (MAP) 133/84 (100) Pulse Ox 98 Capillary Refill : Less Than 3 Seconds General Appearance: WD/WN, no apparent distress HEENT: PERRL/EOMI, normal ENT inspection Respiratory: no respiratory distress, no accessory muscle use Neurologic/Psychiatric: alert, normal mood/affect, oriented x 3 Skin: normal color, warm/dry Skin Problem Location: upper extremities, torso Skin Problem Character: abscess Procedures/Interventions I&D : Blade Size: 11 Progress/Results/Core Measures Results/Orders Vital Signs/I&O 12/19/19 17:20 Temp 37.5 Pulse 116 Resp 18 B/P (MAP) 133/84 (100) Pulse Ox 98 Blood Pressure Mean: 100 Departure Impression Primary Impression: Abscess Disposition: 01 HOME, SELF-CARE Condition: Stable Departure-Patient Inst. Decision time for Depature: 17:32 Referrals: KAITLYN MCBRIDE MD (PCP/Family) Primary Care Physician Patient Instructions: Abscess Incision and Drainage (DC) Add. Discharge Instructions: 1. Return to ER for any concerns 2. Antibiotic as directed. This will take about 2-3 weeks to completely resolve. Warm compresses to the area. All discharge instructions reviewed with patient and/or family. Voiced understanding. Scripts Doxycycline Hyclate (Doxycycline Hyclate) 100 Mg Tablet 100 MG PO BID, #20 TAB 0 Refills Prov: RORY KING APRN 12/19/19 RORY KING APRN Dec 19, 2019 17:34
[2019-12-19 17:45] VITALS: BP 132/80
== END 2019-12-19 17:45 | disposition home or self-care (01) ==
LOC: EDUNIT# 17:03 → ER 17:05
DX: L02.211 Cutaneous abscess of abdominal wall (principal); L02.411 Cutaneous abscess of right axilla; J45.909 Unspecified asthma, uncomplicated; F17.210 Nicotine dependence, cigarettes, uncomplicated; Z88.0 Allergy status to penicillin; Z79.52 Long term (current) use of systemic steroids
CPT/HCPCS: 10060; 87070; 87077; 87186; 87205

== ENCOUNTER 2020-06-03 18:16 | Emergency (ER) | payer BC ==
[~2020-06-03] VITALS: Ht 154.9 cm; Wt 72.5 kg
[~2020-06-03 18:16] MED LIST changes: +DOXY100T2 PO; +HYDR-3870 PO
[2020-06-03] MEDS ORDERED: RX-ALBUTEROL INHALER (VENTOLIN HFA) 18 GM IH STA (18:59)
--- NOTE | 2020-06-03 18:59 | ED Cough/URI ---
General Chief Complaint: Fever-Adult/Adol Stated Complaint: FEVER/MUSCLE ACHES/COUGH/NEG COVID TEST 3 DAYS AGO Source: patient Exam Limitations: no limitations History of Present Illness Date Seen by Provider: Jun 03, 2020 Time Seen by Provider: 18:39 Initial Comments Patient presents to the ER by POV with CC of waking today with nausea, vomiting, chills, dizziness on standing, cough and sore throat. No documented fever. She did take some cough and fever medicine earlier today which did not help tremendously. She is not having diarrhea or loss of sensation taste or smell but she does work at [employer] which she says is full of people with COVID 19. She does have a history of asthma but has not had an inhaler for over a year because of financial reasons. She still smokes cigarettes. She says she feels wheezy and has pain in her right chest with deep inspiration. She is not having a productive cough. She had a negative COVID-19 test [address] arted this morning. Allergies and Home Medications Allergies Coded Allergies: Penicillins (Unverified Allergy, Unknown, 03/05/16) Reports that her brother is allergic, so she doesn't want to take a chance with it. Home Medications Acetaminophen with Codeine 1 Each Tablet, 1 EACH PO Q6H PRN for COUGH Prescribed by: RORY KING on 07/06/192234 Azithromycin 250 Mg Tablet, 250 MG PO DAILY Prescribed by: RORY KING on 07/06/192234 Doxycycline Hyclate 100 Mg Tablet, 100 MG PO BID Prescribed by: RORY KING on 12/19/191733 Hydrocodone Bit/Acetaminophen 1 Tab Tab, 1 EACH PO Q4H PRN for PAIN-MODERATE Prescribed by: JAMES BIANCHI on 10/25/18 0550 Hydrocodone/Acetaminophen 1 Each Tablet, 1 EACH PO Q4-6HR PRN for PAIN-MODERATE Prescribed by: RORY KING on 12/19/191733 Ibuprofen 800 Mg Tablet, 800 MG PO Q6H Prescribed by: MARK LAZCANO on 09/26/18 0755 Prednisone 10 Mg Tab.ds.pk, 10 MG PO DAILY Take 6 tabs(60mg)daily,decrease by 1 tab(10MG)daily. Prescribed by: RORY KING on 1/5/20 2235 Patient Home Medication List Home Medication List Reviewed: Yes Review of Systems Review of Systems Constitutional: chills, dizziness; No fever; malaise EENTM: No ear discharge, No ear pain Respiratory: No cough, No short of breath Cardiovascular: No chest pain, No palpitations Gastrointestinal: No abdominal pain; nausea; No vomiting Genitourinary: No discharge, No dysuria Musculoskeletal: No back pain, No joint pain Skin: No no symptoms reported, No pruritus, No rash Psychiatric/Neurological: Headache; Denies Numbness, Denies Paresthesia All Other Systems Reviewed Negative Unless Noted: Yes Past Zkmvaqa-Uwsmty-Zwwxtr Hx Patient Social History Alcohol Use: Denies Use Recreational Drug Use: Yes Drug of Choice: MARIJUANA Smoking Status: Current Everyday Smoker Type Used: Cigarettes Former Smoker, Quit: Jun 27, 2019 2nd Hand Smoke Exposure: Yes Recent Hopitalizations: No Immunizations Up To Date Tetanus Booster (TDap): Unknown PED Vaccines UTD: Yes Seasonal Allergies Seasonal Allergies: Yes Past Medical History Surgeries: Yes (hymenectoy, wisdom teeth) Section Respiratory: Yes Asthma Cardiac: No Neurological: No Reproductive Disorders: No Genitourinary: No Gastrointestinal: No Musculoskeletal: No Endocrine: No HEENT: No Cancer: No Psychosocial: No Integumentary: No Blood Disorders: No Adverse Reaction/Blood Tranf: No Family Medical History Arthritis 21 FATHER, Onset:40's - 50 No Family History of: AIDS Abdominal aortic aneurysm Gratiot's disease Alcoholism Alzheimer's disease Aphasia Asthma Cancer of mouth Cardiovascular disease Cataracts Colon cancer Completed stroke Congenital disease Congenital heart disease Coronary thrombosis Cystic fibrosis Deafness or hearing loss Dementia Diabetes mellitus Drug abuse Dysphasia Fibrocystic disease of breast Gastroenteritis Glaucoma Headache disorder Hypercholesterolemia Hypertension Infertility Kidney disease Myocardial infarction Neoplasm Not obtainable due to adoption Osteoporosis Parkinson's disease Prostate cancer Psychosocial problem Respiratory disorder Seizure disorder Severe allergy Thyroid disease Tuberculosis Visual disorder No Pertinent Family Hx Physical Exam Vital Signs - First Documented 06/03/20 18:43 Temp 36.4 Pulse 120 Resp 20 B/P (MAP) 115/56 (75) Pulse Ox 99 O2 Delivery Room Air Capillary Refill : Height: 5'1.00" Weight: 198lbs. 0.0oz. 89.991856dq; 31.00 BMI Method:Stated General Appearance: WD/WN, no apparent distress Eyes: Bilateral Eye Normal Inspection, Bilateral Eye PERRL, Bilateral Eye EOMI HEENT: PERRL/EOMI, normal ENT inspection, TMs normal, pharynx normal Neck: full range of motion, supple, normal inspection Respiratory: no respiratory distress (96-98% ra), no accessory muscle use; No rales; wheezing Cardiovascular: normal peripheral pulses, regular rate, rhythm, no edema Gastrointestinal: normal bowel sounds, non tender Neurologic/Psychiatric: alert, normal mood/affect, oriented x 3 Skin: normal color, warm/dry Progress/Results/Core Measures Suspected Sepsis SIRS Temperature: Pulse: Respiratory Rate: Laboratory Tests 06/03/20 19:40: White Blood Count 27.4H Blood Pressure / Mean: Laboratory Tests 06/03/20 19:40: Creatinine 0.81, Platelet Count 216, Total Bilirubin 0.8 Results/Orders Lab Results Laboratory Tests Test 06/03/20 19:05 06/03/20 19:40 06/03/20 19:52 Range/Units White Blood Count 27.4 H 4.3-11.0 10^3/uL Red Blood Count 4.62 3.80-5.11 10^6/uL Hemoglobin 13.9 11.5-16.0 g/dL Hematocrit 43 35-52 % Mean Corpuscular Volume 93 80-99 fL Mean Corpuscular Hemoglobin 30 25-34 pg Mean Corpuscular Hemoglobin Concent 32 32-36 g/dL Red Cell Distribution Width 13.5 10.0-14.5 % Platelet Count 216 130-400 10^3/uL Mean Platelet Volume 10.9 9.0-12.2 fL Immature Granulocyte % (Auto) 1 % Neutrophils (%) (Auto) 88 H 42-75 % Lymphocytes (%) (Auto) 4 L 12-44 % Monocytes (%) (Auto) 6 0-12 % Eosinophils (%) (Auto) 0 0-10 % Basophils (%) (Auto) 0 0-10 % Neutrophils # (Auto) 24.1 H 1.8-7.8 10^3/uL Lymphocytes # (Auto) 1.2 1.0-4.0 10^3/uL Monocytes # (Auto) 1.8 H 0.0-1.0 10^3/uL Eosinophils # (Auto) 0.0 0.0-0.3 10^3/uL Basophils # (Auto) 0.1 0.0-0.1 10^3/uL Immature Granulocyte # (Auto) 0.2 H 0.0-0.1 10^3/uL Neutrophils % (Manual) 76 % Lymphocytes % (Manual) 1 % Monocytes % (Manual) 4 % Eosinophils % (Manual) 0 % Basophils % (Manual) 0 % Band Neutrophils 19 % Toxic Granulation 1+ Sodium Level 132 L 135-145 MMOL/L Potassium Level 3.8 3.6-5.0 MMOL/L Chloride Level 104 98-107 MMOL/L Carbon Dioxide Level 16 L 21-32 MMOL/L Anion Gap 12 5-14 MMOL/L Blood Urea Nitrogen 14 7-18 MG/DL Creatinine 0.81 0.60-1.30 MG/DL Estimat Glomerular Filtration Rate > 60 BUN/Creatinine Ratio 17 Glucose Level 102 70-105 MG/DL Calcium Level 8.3 L 8.5-10.1 MG/DL Corrected Calcium 8.5 8.5-10.1 MG/DL Total Bilirubin 0.8 0.1-1.0 MG/DL Aspartate Amino Transf (AST/SGOT) 14 5-34 U/L Alanine Aminotransferase (ALT/SGPT) 9 0-55 U/L Alkaline Phosphatase 51 40-136 U/L Total Protein 6.6 6.4-8.2 GM/DL Albumin 3.8 3.2-4.5 GM/DL Serum Test, Qualitative NEGATIVE NEGATIVE Micro Results Microbiology 06/03/20 Influenza Types A,B Antigen (TU) - Final, Complete My Orders Orders - GENNA PAULINO Influenza A And B Antigens (06/03/20 18:51) Cbc With Automated Diff (06/03/20 18:51) Comprehensive Metabolic Panel (06/03/20 18:51) Coronavirus Sars-Cov-2 So 2018 (06/03/20 18:51) Hcg,Qualitative Serum (06/03/20 18:51) Ondansetron Injection (Zofran Injectio (06/03/20 19:00) Ketorolac Injection (Toradol Injection) (06/03/20 19:00) Lactated Ringers (Lr 1000 Ml Iv Solution (06/03/20 19:00) Rx-Albuterol Inhaler (Rx-Ventolin Hfa) (06/03/20 18:59) Methylprednisolone Sod Succ (Solu-Medrol (06/03/20 19:30) Manual Differential (06/03/20 19:40) Chest 1 View, Ap/Pa Only (06/03/20 19:54) Medications Given in ED Current Medications Medications Dose Ordered Sig/Alexa Route Start Time Stop Time Status Last Admin Dose Admin Ketorolac Tromethamine 30 mg ONCE ONCE IVP 06/03/20 19:00 06/03/20 19:01 DC 06/03/20 19:11 30 MG Methylprednisolone Sodium Succinate 62.5 mg ONCE ONCE IVP 06/03/20 19:30 06/03/20 19:31 DC 06/03/20 19:20 62.5 MG Ondansetron HCl 8 mg ONCE ONCE IVP 06/03/20 19:00 06/03/20 19:01 DC 06/03/20 19:11 8 MG Vital Signs/I&O 06/03/20 18:43 Temp 36.4 Pulse 120 Resp 20 B/P (MAP) 115/56 (75) Pulse Ox 99 O2 Delivery Room Air Capillary Refill : Progress Note : Time: 19:01 Progress Note She appears to have a viral syndrome with wheezing. We'll give her some albuterol and a take-home pro-air. If this improves her wheezing then we would not use steroids. A liter of lactated Ringer's, Toradol, Zofran and some basic labs. Diagnostic Imaging Diagonstic Imaging: Xray Plain Films/CT/US/NM/MRI: chest Comments NAME: MIREILLE JOHNSON [facility] REC#: [id number] PT STATUS: REG ER : 1995 PHYSICIAN: GENNA PAULINO MD ADMIT DATE: 06/03/20/ER Draft Date of Exam:06/03/20 CHEST 1 VIEW, AP/PA ONLY EXAMINATION: Chest 1 view HISTORY: Wheeze, cough SOA WBC COMPARISON: None available. FINDINGS: Heart size and pulmonary vasculature are normal. Mild bibasilar interstitial opacities. No pleural effusion or pneumothorax. The osseous structures are intact. IMPRESSION: 1. Mild bibasilar opacities which could represent atelectasis, edema, or pneumonia in the appropriate clinical setting. Dictated on workstation # [id number] Dict: 06/03/202037 Trans: 06/03/202040 [facility] [id number] Interpreted by: DULCE MENDOZA DO Electronically signed by: Reviewed: Reviewed by Me Departure Impression Primary Impression: Pneumonia Qualified Codes: J18.9 - Pneumonia, unspecified organism Additional Impressions: Person under investigation for severe acute respiratory syndrome coronavirus 2 (SARS-CoV-2) infection Asthma Qualified Codes: J45.21 - Mild intermittent asthma with (acute) exacerbation Disposition: HOME, SELF-CARE Condition: Improved Departure-Patient Inst. Decision time for Depature: 20:50 Referrals: KAITLYN MCBRIDE MD (PCP/Family) Primary Care Physician Patient Instructions: Coronavirus Disease 2019 (COVID-19) (DC), Pneumonia in Adults, Asthma in Adults Add. Discharge Instructions: You have pneumonia and your COVID test will come back in about 2 days. Some we will call you with results. You are to remain in quarantine for the next 10 days at home plus you must be symptom-free for at least 72 hours without the use of Tylenol or Motrin to mask your symptoms. If you have nausea take ondansetron one tablet under the tongue every 6 hours as necessary. Tylenol and Motrin for body aches and fever. 2 puffs albuterol every 4 hours through the spacer as necessary for wheezing, coughing fits. Tessalon Perles 1 capsule every 6 hours as necessary for cough. Prednisone 2 tablets daily for the next 5 days to help with your asthma attack. Drink plenty of fluids, sports drinks are encouraged. Cefdinir one capsule twice a day for the next 7 days. Azithromycin 1 tablet daily for the next 4 days. 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 If you're not able to keep up with your fluid intake and her still having diarrhea after 24-48 hours then brain picker some Imodium. Imodium 2 tablets followed by one tablet every 4 hours afterwards if you're still having loose, watery stools. Follow-up with a doctor or return to the ER if your symptoms are worsening. If you can obtain a pulse oximeter and are oxygen sats are consistently below 94% then you need to return to the ER. All discharge instructions reviewed with patient and/or family. Voiced understanding. Scripts Prednisone (Prednisone) 20 Mg Tab 40 MG PO DAILY for 5 Days, #10 TAB 0 Refills Prov: GENNA PAULINO 06/03/20 Ondansetron (Ondansetron Odt) 4 Mg Tab.rapdis 4 MG PO Q6H PRN for NAUSEA/VOMITING, #12 TAB 0 Refills Prov: GENNA PAULINO 06/03/20 Benzonatate (Tessalon Perle) 100 Mg Capsule 100 MG PO Q6H PRN for COUGH, #20 CAP 0 Refills Prov: GENNA PAULINO 06/03/20 Azithromycin (Azithromycin) 250 Mg Tablet 250 MG PO DAILY, #4 TAB 0 Refills Prov: GENNA PAULINO 06/03/20 Cefdinir (Cefdinir) 300 Mg Capsule 300 MG PO BID for 7 Days, #14 CAP 0 Refills Prov: GENNA PAULINO 06/03/20 Work/School Note: Work Release Form Date Seen in the Emergency Department: Jun 03, 2020 Return to Work: Jun 14, 2020 Restrictions: No Restrictions Other Restrictions Listed Below: Need to be symptom free for 72 hours. 10 days quarantine if COVID positive GENNA PAULINO Jun 03, 2020 18:59
[2020-06-03] MEDS ORDERED: KETOROLAC 30 MG/ML VIAL IVP ONE (19:00)
[2020-06-03] MEDS ORDERED: LACTATED RINGERS 1,000 ML IV SCH (19:00)
[2020-06-03] MEDS ORDERED: ONDANSETRON 4 MG/2 ML (SDV) Z0FRAN IVP ONE (19:00)
[2020-06-03] MEDS ORDERED: methylPREDNISolone 125 MG (Solu-MEDROL) VIAL IVP ONE (19:30)
[2020-06-03 19:47] LABS: BASOPHILS # (AUTO) 0.1 10^3/uL (0.0-0.1); BASOPHILS % (AUTO) 0 % (0-10); EOSINOPHILS % (AUTO) 0 % (0-10); HEMATOCRIT 43 % (35-52); HEMOGLOBIN 13.9 g/dL (11.5-16.0); LYMPHOCYTES # (AUTO) 1.2 10^3/uL (1.0-4.0); LYMPHOCYTES % (AUTO) 4 % (12-44); MEAN CORPUSCULAR HEMOGLOBIN 30 pg (25-34); MEAN CORPUSCULAR HGB CONC 32 g/dL (32-36); MEAN CORPUSCULAR VOLUME 93 fL (80-99); MEAN PLATELET VOLUME 10.9 fL (9.0-12.2); MONOCYTES # (AUTO) 1.8 10^3/uL (0.0-1.0); MONOCYTES % (AUTO) 6 % (0-12); NEUTROPHILS # (AUTO) 24.1 10^3/uL (1.8-7.8); NEUTROPHILS % (AUTO) 88 % (42-75); PLATELET COUNT 216 10^3/uL (130-400); WHITE BLOOD COUNT 27.4 10^3/uL (4.3-11.0)
[2020-06-03 19:59] LABS: ALBUMIN 3.8 GM/DL (3.2-4.5); CHLORIDE 104 MMOL/L (98-107); POTASSIUM 3.8 MMOL/L (3.6-5.0); SODIUM 132 MMOL/L (135-145)
[2020-06-03 20:00] LABS: CALCIUM 8.3 MG/DL (8.5-10.1)
[2020-06-03 20:01] LABS: GLUCOSE 102 MG/DL (70-105)
[2020-06-03 20:02] LABS: BAND NEUTROPHILS 19 %; BASOPHILS % (MANUAL) 0 %; EOSINOPHILS % (MANUAL) 0 %; LYMPHOCYTES % (MANUAL) 1 %; MONOCYTES % (MANUAL) 4 %; NEUTROPHILS % (MANUAL) 76 %; TOTAL PROTEIN 6.6 GM/DL (6.4-8.2); TOXIC GRANULATION/VACUOLAZATIO 1+
[2020-06-03 20:03] LABS: BILIRUBIN,TOTAL 0.8 MG/DL (0.1-1.0); CARBON DIOXIDE 16 MMOL/L (21-32)
[2020-06-03 20:05] LABS: ALKALINE PHOSPHATASE 51 U/L (40-136); CREATININE SERUM 0.81 MG/DL (0.60-1.30); GFR ESTIMATED > 60
[2020-06-03 20:06] LABS: BUN/CREATININE RATIO 17
[2020-06-03 20:08] LABS: ALANINE AMINOTRANSFERASE 9 U/L (0-55)
--- NOTE | 2020-06-03 20:41 | Diagnostic Imaging Report ---
EXAMINATION: Chest 1 view HISTORY: Wheeze, cough SOA WBC COMPARISON: None available. FINDINGS: Heart size and pulmonary vasculature are normal. Mild bibasilar interstitial opacities. No pleural effusion or pneumothorax. The osseous structures are intact. IMPRESSION: 1. Mild bibasilar opacities which could represent atelectasis, edema, or pneumonia in the appropriate clinical setting. Dictated by: Dictated on workstation # [id number]
[2020-06-03] MEDS ORDERED: AZITHROMYCIN 250 MG TAB (ZITHROMAX) PO ONE (21:00)
[2020-06-03] MEDS ORDERED: cefTRIAXone FOR IV USE 1,000 MG in WATER (STERILE) FOR INJECTION 10 ML IV ONE (21:00)
[2020-06-03] MEDS ORDERED: ONDA4TAB11 PO (21:01)
[2020-06-03] MEDS ORDERED: CEFD300C3 PO (21:01)
[2020-06-03] MEDS ORDERED: AZIT250T12 PO (21:01)
[2020-06-03] MEDS ORDERED: BENZ-13 PO (21:01)
[2020-06-03] MEDS ORDERED: PRD20T PO (21:01)
[2020-06-03] MEDS ORDERED: RX-ONDANSETRON 4 MG ODT (ZOFRAN) PPK #4 PO STA (21:04)
[2020-06-03 21:52] VITALS: BP 104/57
== END 2020-06-03 21:52 ==
LOC: EDUNIT# 18:16 → ER 18:18
DX: J18.9 Pneumonia, unspecified organism (principal); J45.909 Unspecified asthma, uncomplicated; F17.210 Nicotine dependence, cigarettes, uncomplicated; Z88.0 Allergy status to penicillin; Z20.828 Contact with and (suspected) exposure to other viral communicable diseases; Z82.61 Family history of arthritis; Z79.52 Long term (current) use of systemic steroids
CPT/HCPCS: 71045; 80053; 84703; 85007; 85027; 87804; 99284; U0002; 36415; 87635

== ENCOUNTER 2020-07-15 23:35 | Emergency (ER) | payer BC ==
[~2020-07-15] VITALS: Ht 162.6 cm; Wt 72.6 kg
[~2020-07-15 23:35] MED LIST changes: +BENZ-13 PO; +CEFD300C3 PO; +ONDA4TAB11 PO; +PRD20T PO
[2020-07-15] MEDS ORDERED: RT-ALBUTEROL/IPRATROPIUM 3 ML (DUONEB) VIAL ONE (23:48)
[2020-07-15 23:59] LABS: BASOPHILS # (AUTO) 0.1 10^3/uL (0.0-0.1); BASOPHILS % (AUTO) 1 % (0-10); EOSINOPHILS # (AUTO) 1.9 10^3/uL (0.0-0.3); EOSINOPHILS % (AUTO) 15 % (0-10); HEMATOCRIT 47 % (35-52); HEMOGLOBIN 15.3 g/dL (11.5-16.0); LYMPHOCYTES # (AUTO) 3.9 10^3/uL (1.0-4.0); LYMPHOCYTES % (AUTO) 30 % (12-44); MEAN CORPUSCULAR HEMOGLOBIN 30 pg (25-34); MEAN CORPUSCULAR HGB CONC 33 g/dL (32-36); MEAN CORPUSCULAR VOLUME 91 fL (80-99); MEAN PLATELET VOLUME 9.8 fL (9.0-12.2); MONOCYTES # (AUTO) 0.9 10^3/uL (0.0-1.0); MONOCYTES % (AUTO) 7 % (0-12); NEUTROPHILS % (AUTO) 47 % (42-75); PLATELET COUNT 382 10^3/uL (130-400); WHITE BLOOD COUNT 12.8 10^3/uL (4.3-11.0)
[2020-07-16] MEDS ORDERED: diphenhydrAMINE 25 MG TAB (BENADRYL) PO ONE
[2020-07-16] MEDS ORDERED: methylPREDNISolone 125 MG (Solu-MEDROL) VIAL IVP ONE
[2020-07-16] MEDS ORDERED: RT-ALBUTEROL/IPRATROPIUM 3 ML (DUONEB) VIAL INH ONE
[2020-07-16] MEDS ORDERED: LACTATED RINGERS 1,000 ML IV ONE
[2020-07-16 00:02] LABS: CHLORIDE 109 MMOL/L (98-107); POTASSIUM 3.9 MMOL/L (3.6-5.0); SODIUM 139 MMOL/L (135-145)
[2020-07-16 00:04] LABS: GLUCOSE 89 MG/DL (70-105)
[2020-07-16 00:05] LABS: CARBON DIOXIDE 18 MMOL/L (21-32)
[2020-07-16 00:08] LABS: CREATININE SERUM 0.79 MG/DL (0.60-1.30); GFR ESTIMATED > 60
[2020-07-16 00:09] LABS: BUN/CREATININE RATIO 13
[2020-07-16 00:33] LABS: NEUTROPHILS % (MANUAL) 49 %
[2020-07-16 00:34] LABS: EOSINOPHILS % (MANUAL) 15 %; LYMPHOCYTES % (MANUAL) 29 %; MONOCYTES % (MANUAL) 7 %; RBC MORPH NORMAL
[2020-07-16] MEDS ORDERED: PRD20T PO (01:10)
[2020-07-16] MEDS ORDERED: RT-ALBUINH IH (01:10)
[2020-07-16] MEDS ORDERED: LORA10TA76 PO (01:10)
--- NOTE | 2020-07-16 01:13 | ED Respiratory ---
General Chief Complaint: Respiratory Problems Stated Complaint: ASTHMA ATTACK Nursing Triage Note: PT AMBULATES TO ROOM #4 WITH C/O "ASTHMA ATTACK." REPORTS SHE HAS EXPERIENCED BETWEEN 15-20 "ATTACKS" THROUGHOUT THIS DAY. 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 REPORTS CONTINUED SOA. DENIES FEVER OR CHILLS. REPORTS SHE TESTED + FOR COVID-19 ON 06/02/20. A&OX4. Source: patient Exam Limitations: no limitations History of Present Illness Date Seen by Provider: Jul 15, 2020 Time Seen by Provider: 23:40 Initial Comments This 25-year-old young lady presents to the emergency room with worsening asthma exacerbation over the past couple weeks. She uses then albuterol nebulizer but does not have an inhaler, maintenance medications, or any antihistamines. She has environmental allergies but states she just has not been able to get to the store to get antihistamines. She denies smoking. Oxygen saturations are normal but she has fairly tight wheezing on exam. She had a positive Covid test about 6 weeks ago. Allergies and Home Medications Allergies Coded Allergies: Penicillins (Unverified Allergy, Unknown, 03/05/16) Reports that her brother is allergic, so she doesn't want to take a chance with it. Home Medications Acetaminophen with Codeine 1 Each Tablet, 1 EACH PO Q6H PRN for COUGH Prescribed by: RORY KING on 07/06/192234 Albuterol Sulfate 1 Puff Puff, 1-4 PUFF IH Q4H PRN for WHEEZING 1 PUFF = 90 MCG Prescribed by: GERARDO FRANCIS on 07/16/20 0110 Azithromycin 250 Mg Tablet, 250 MG PO DAILY Prescribed by: RORY KING on 07/06/192234 Azithromycin 250 Mg Tablet, 250 MG PO DAILY Prescribed by: GENNA PAULINO on 06/03/202100 Benzonatate 100 Mg Capsule, 100 MG PO Q6H PRN for COUGH Prescribed by: GENNA PAULINO on 06/03/202100 Cefdinir 300 Mg Capsule, 300 MG PO BID Prescribed by: GENNA PAULINO on 06/03/202100 Doxycycline Hyclate 100 Mg Tablet, 100 MG PO BID Prescribed by: RORY KING on 12/19/19 1734 Hydrocodone Bit/Acetaminophen 1 Tab Tab, 1 EACH PO Q4H PRN for PAIN-MODERATE Prescribed by: JAMES BIANCHI on 10/25/18 0550 Hydrocodone/Acetaminophen 1 Each Tablet, 1 EACH PO Q4-6HR PRN for PAIN-MODERATE Prescribed by: RORY KING on 12/19/19 1734 Ibuprofen 800 Mg Tablet, 800 MG PO Q6H Prescribed by: MARK LAZCANO on 09/26/18 0755 Loratadine 10 Mg Tablet, 10 MG PO DAILY Prescribed by: GERARDO FRANCIS on 07/16/20 011 Ondansetron 4 Mg Tab.rapdis, 4 MG PO Q6H PRN for NAUSEA/VOMITING Prescribed by: GENNA PAULINO on 06/03/202100 Prednisone 10 Mg Tab.ds.pk, 10 MG PO DAILY Take 6 tabs(60mg)daily,decrease by 1 tab(10MG)daily. Prescribed by: RORY KING on 07/06/192234 Prednisone 20 Mg Tab, 40 MG PO DAILY Prescribed by: GENNA PAULINO on 06/03/202100 Prednisone 20 Mg Tab, 40 MG PO DAILY Prescribed by: GERARDO FRANCIS on 07/16/20109 Patient Home Medication List Home Medication List Reviewed: Yes Review of Systems Review of Systems Constitutional: no symptoms reported EENTM: no symptoms reported Respiratory: see HPI Cardiovascular: no symptoms reported Gastrointestinal: no symptoms reported Genitourinary: no symptoms reported : No Musculoskeletal: no symptoms reported Skin: no symptoms reported Psychiatric/Neurological: No Symptoms Reported Hematologic/Lymphatic: No Symptoms Reported Past Vxqnvnj-Minnkh-Nrwqca Hx Past Med/Social Hx: Reviewed Nursing Past Med/Soc Hx Patient Social History Drug of Choice: MARIJUANA Type Used: Cigarettes Former Smoker, Quit: Jun 27, 2019 2nd Hand Smoke Exposure: Yes Recent Infectious Disease Expo: No Recent Hopitalizations: No Immunizations Up To Date Tetanus Booster (TDap): Unknown PED Vaccines UTD: Yes Date of Influenza Vaccine: May 02, 2020 Seasonal Allergies Seasonal Allergies: Yes Past Medical History Surgeries: Yes (hymenectoy, wisdom teeth) Section Respiratory: Yes Asthma Cardiac: No Neurological: No Reproductive Disorders: No Genitourinary: No Gastrointestinal: No Musculoskeletal: No Endocrine: No HEENT: No Cancer: No Psychosocial: No Integumentary: No Blood Disorders: No Adverse Reaction/Blood Tranf: No Family Medical History Arthritis 21 FATHER, Onset:40's - 50 No Family History of: AIDS Abdominal aortic aneurysm Ambrocio's disease Alcoholism Alzheimer's disease Aphasia Asthma Cancer of mouth Cardiovascular disease Cataracts Colon cancer Completed stroke Congenital disease Congenital heart disease Coronary thrombosis Cystic fibrosis Deafness or hearing loss Dementia Diabetes mellitus Drug abuse Dysphasia Fibrocystic disease of breast Gastroenteritis Glaucoma Headache disorder Hypercholesterolemia Hypertension Infertility Kidney disease Myocardial infarction Neoplasm Not obtainable due to adoption Osteoporosis Parkinson's disease Prostate cancer Psychosocial problem Respiratory disorder Seizure disorder Severe allergy Thyroid disease Tuberculosis Visual disorder No Pertinent Family Hx Physical Exam Vital Signs - First Documented 07/15/20 23:40 Temp 36.0 Pulse 92 Resp 22 B/P (MAP) 114/73 (87) Pulse Ox 94 O2 Delivery Room Air Capillary Refill : Less Than 3 Seconds Height: 5'1.00" Weight: 198lbs. 0.0oz. 89.682825pw; 27.00 BMI Method:Stated General Appearance: WD/WN, no apparent distress HEENT: PERRL/EOMI, normal ENT inspection, pharynx normal Neck: normal inspection Respiratory: no respiratory distress, decreased breath sounds, accessory muscle use, wheezing Cardiovascular: regular rate, rhythm, no edema, no murmur Gastrointestinal: non tender, soft Extremities: normal inspection, no pedal edema Neurologic/Psychiatric: teacher of the deaf II-XII nml as tested, no motor/sensory deficits, alert, normal mood/affect, oriented x 3 Skin: normal color, warm/dry Progress/Results/Core Measures Suspected Sepsis Recent Fever Within 48 Hours: No Infection Criteria Present: Suspected New Infection New/Unexplained Altered Menta: No Sepsis Screen: Possible Severe Sepsis Risk SIRS Temperature: Pulse: 92 Respiratory Rate: 22 Laboratory Tests 07/15/20 23:43: White Blood Count 12.8H Blood Pressure 114 /73 Mean: 87 Laboratory Tests 07/15/20 23:43: Creatinine 0.79, Platelet Count 382 Results/Orders Lab Results Laboratory Tests Test 07/15/20 23:43 Range/Units White Blood Count 12.8 H 4.3-11.0 10^3/uL Red Blood Count 5.15 H 3.80-5.11 10^6/uL Hemoglobin 15.3 11.5-16.0 g/dL Hematocrit 47 35-52 % Mean Corpuscular Volume 91 80-99 fL Mean Corpuscular Hemoglobin 30 25-34 pg Mean Corpuscular Hemoglobin Concent 33 32-36 g/dL Red Cell Distribution Width 13.3 10.0-14.5 % Platelet Count 382 130-400 10^3/uL Mean Platelet Volume 9.8 9.0-12.2 fL Immature Granulocyte % (Auto) 1 % Neutrophils (%) (Auto) 47 42-75 % Lymphocytes (%) (Auto) 30 12-44 % Monocytes (%) (Auto) 7 0-12 % Eosinophils (%) (Auto) 15 H 0-10 % Basophils (%) (Auto) 1 0-10 % Neutrophils # (Auto) 6.0 1.8-7.8 10^3/uL Lymphocytes # (Auto) 3.9 1.0-4.0 10^3/uL Monocytes # (Auto) 0.9 0.0-1.0 10^3/uL Eosinophils # (Auto) 1.9 H 0.0-0.3 10^3/uL Basophils # (Auto) 0.1 0.0-0.1 10^3/uL Immature Granulocyte # (Auto) 0.1 0.0-0.1 10^3/uL Neutrophils % (Manual) 49 % Lymphocytes % (Manual) 29 % Monocytes % (Manual) 7 % Eosinophils % (Manual) 15 % Blood Morphology Comment NORMAL Sodium Level 139 135-145 MMOL/L Potassium Level 3.9 3.6-5.0 MMOL/L Chloride Level 109 H 98-107 MMOL/L Carbon Dioxide Level 18 L 21-32 MMOL/L Anion Gap 12 5-14 MMOL/L Blood Urea Nitrogen 10 7-18 MG/DL Creatinine 0.79 0.60-1.30 MG/DL Estimat Glomerular Filtration Rate > 60 BUN/Creatinine Ratio 13 Glucose Level 89 70-105 MG/DL Calcium Level 9.2 8.5-10.1 MG/DL C-Reactive Protein High Sensitivity 0.12 0.00-0.50 MG/DL Serum Test, Qualitative NEGATIVE NEGATIVE My Orders Orders - GERARDO LYNN MD Basic Metabolic Panel (07/15/20 23:48) Cbc With Automated Diff (07/15/20 23:48) Hs C Reactive Protein (07/15/20 23:48) Hcg,Qualitative Serum (07/15/20 23:48) Ed Iv/Invasive Line Start (07/15/20 23:48) Lactated Ringers (Lr 1000 Ml Iv Solution (07/16/20 00:00) Methylprednisolone Sod Succ (Solu-Medrol (07/16/20 00:00) Albuterol/Ipra Inhalation Soln (Duoneb I (07/16/20 00:00) Svn Small Volume Nebulizer (07/15/20 23:48) Diphenhydramine Tablet (Benadryl Tablet) (07/16/20 00:00) Albuterol/Ipra Inhalation Soln (Duoneb I (07/15/20 23:48) Manual Differential (07/15/20 23:43) Chest 1 View, Ap/Pa Only (07/16/20 00:44) Medications Given in ED Current Medications Medications Dose Ordered Sig/Alexa Route Start Time Stop Time Status Last Admin Dose Admin Albuterol/ Ipratropium 3 ml ONCE ONCE INH 07/16/20 00:00 07/16/20 00:01 DC 07/15/20 23:53 3 ML Diphenhydramine HCl 50 mg ONCE ONCE PO 07/16/20 00:00 07/16/20 00:01 DC 07/15/20 23:57 50 MG Lactated Ringer's 1,000 ml @ 0 mls/hr Q0M ONCE IV 07/16/20 00:00 07/16/20 00:01 DC 07/15/20 23:56 1,000 MLS/HR Methylprednisolone Sodium Succinate 125 mg ONCE ONCE IVP 07/16/20 00:00 07/16/20 00:01 DC 07/15/20 23:56 125 MG Vital Signs/I&O 07/15/20 07/16/20 23:40 01:22 Temp 36.0 Pulse 92 76 Resp 22 28 B/P (MAP) 114/73 (87) 115/60 (87) Pulse Ox 94 95 O2 Delivery Room Air Capillary Refill : Less Than 3 Seconds Blood Pressure Mean: 87 Progress Note : Progress Note Patient was treated with a DuoNeb, IV fluids, and Solu-Medrol. No sign of infection was identified. Diagnostic Imaging Diagonstic Imaging: Xray Plain Films/CT/US/NM/MRI: chest Comments Chest x-ray viewed by me and report reviewed. See report below: NAME: [facility] REC#: [id number] PT STATUS: DEP ER : 1995 PHYSICIAN: GERARDO LYNN MD ADMIT DATE: 07/15/20/ER Draft Date of Exam:07/16/20 CHEST 1 VIEW, AP/PA ONLY EXAMINATION: AP upright portable chest INDICATION: Cough. Asthma. COMPARISON: 06/03/2020 FINDINGS: The lungs are clear and the pulmonary vasculature is normal. No pneumothorax or large pleural effusion. Heart size and mediastinal contours are normal and unchanged. No acute osseous abnormality is identified. IMPRESSION: No radiographic evidence of acute chest disease. Dictated on workstation # [id number] Dict: 07/16/20 0532 Trans: 07/16/20 0535 CAROLE [id number] Interpreted by: VANCE ESCOBEDO DO Departure Impression Primary Impression: Asthma exacerbation Qualified Codes: J45.901 - Unspecified asthma with (acute) exacerbation Disposition: HOME, SELF-CARE Condition: Improved Departure-Patient Inst. Decision time for Depature: 01:11 Referrals: KAITLYN MCBRIDE MD (PCP/Family) Primary Care Physician Patient Instructions: Asthma, Adult (DC) Add. Discharge Instructions: Start your prednisone steroids in the morning and complete the 4-day course. Take an antihistamine such as Claritin (loratadine) daily for your allergies. Drink plenty of clear liquids to stay well-hydrated. Use your inhaler as directed. Please follow-up with your primary care provider immediately to review asthma maintenance treatment. Please call today for an appointment. Call with questions or concerns. Return to the ER with worsening condition. All discharge instructions reviewed with patient and/or family. Voiced understanding. Scripts Albuterol Sulfate (PROAIR HFA) 1 Puff Puff 1-4 PUFF IH Q4H PRN for WHEEZING, #1 EA 1 PUFF = 90 MCG Prov: GERARDO LYNN MD 07/16/20 Loratadine (Claritin) 10 Mg Tablet 10 MG PO DAILY, #30 TAB Prov: GERARDO LYNN MD 07/16/20 Prednisone (Prednisone) 20 Mg Tab 40 MG PO DAILY, #8 TAB 0 Refills Prov: GERARDO LYNN MD 07/16/20 GERARDO LYNN MD Jul 16, 2020 01:13
[2020-07-16 01:22] VITALS: BP 115/60
[2020-07-16 02:05] LABS: CALCIUM 9.2 MG/DL (8.5-10.1)
--- NOTE | 2020-07-16 05:36 | Diagnostic Imaging Report ---
EXAMINATION: AP upright portable chest INDICATION: Cough. Asthma. COMPARISON: 06/03/2020 FINDINGS: The lungs are clear and the pulmonary vasculature is normal. No pneumothorax or large pleural effusion. Heart size and mediastinal contours are normal and unchanged. No acute osseous abnormality is identified. IMPRESSION: No radiographic evidence of acute chest disease. Dictated by: Dictated on workstation # [id number]
== END 2020-07-16 01:22 | disposition home or self-care (01) ==
LOC: EDUNIT# 23:35 → ER 23:39
DX: J45.901 Unspecified asthma with (acute) exacerbation (principal); Z87.891 Personal history of nicotine dependence; Z82.61 Family history of arthritis; Z88.0 Allergy status to penicillin; Z79.52 Long term (current) use of systemic steroids
CPT/HCPCS: 36415; 71045; 80048; 84703; 85007; 85027; 86141

== ENCOUNTER 2020-07-30 17:07 | Emergency (ER) | payer BC ==
[~2020-07-30] VITALS: Ht 152 cm; Wt 74.0 kg
[~2020-07-30 17:07] MED LIST changes: +LORA10TA76 PO; +RT-ALBUINH IH
--- NOTE | 2020-07-30 17:22 | ED Cough/URI ---
General Chief Complaint: Respiratory Problems Stated Complaint: ASTHMA Source: patient Exam Limitations: no limitations History of Present Illness Date Seen by Provider: Jul 30, 2020 Time Seen by Provider: 17:22 Initial Comments To ER with reports of shortness of breath that began this afternoon. She has asthma. She ran out of her nebulizer medication a few weeks ago. She has been using her rescue inhaler quite frequently. She finished steroids a few days ago. She has a prescription for a 14-day taper of steroids at [facility] but she has not yet picked it up. No fevers or chills. She is scheduled to establish care with a fire and explosion investigator on Sunday. Timing/Duration: constant Severity/Quality: moderate Associated Symptoms: cough Allergies and Home Medications Allergies Coded Allergies: Penicillins (Unverified Allergy, Unknown, 03/05/16) Reports that her brother is allergic, so she doesn't want to take a chance with it. Home Medications Acetaminophen with Codeine 1 Each Tablet, 1 EACH PO Q6H PRN for COUGH Prescribed by: RORY KING on 07/06/192234 Albuterol Sulfate 1 Puff Puff, 1-4 PUFF IH Q4H PRN for WHEEZING 1 PUFF = 90 MCG Prescribed by: GERARDO FRANCIS on 07/16/20 0110 Azithromycin 250 Mg Tablet, 250 MG PO DAILY Prescribed by: RORY KING on 07/06/192234 Azithromycin 250 Mg Tablet, 250 MG PO DAILY Prescribed by: GENNA PAULINO on 06/03/202100 Benzonatate 100 Mg Capsule, 100 MG PO Q6H PRN for COUGH Prescribed by: GENNA PAULINO on 06/03/202100 Cefdinir 300 Mg Capsule, 300 MG PO BID Prescribed by: GENNA PAULINO on 06/03/202100 Doxycycline Hyclate 100 Mg Tablet, 100 MG PO BID Prescribed by: RORY KING on 12/19/19 1734 Hydrocodone Bit/Acetaminophen 1 Tab Tab, 1 EACH PO Q4H PRN for PAIN-MODERATE Prescribed by: JAMES BIANCHI on 10/25/18 0550 Hydrocodone/Acetaminophen 1 Each Tablet, 1 EACH PO Q4-6HR PRN for PAIN-MODERATE Prescribed by: RORY KING on 12/19/19 1734 Ibuprofen 800 Mg Tablet, 800 MG PO Q6H Prescribed by: MARK LAZCANO on 09/26/18 0755 Loratadine 10 Mg Tablet, 10 MG PO DAILY Prescribed by: GERARDO FRANCIS on 07/16/20109 Ondansetron 4 Mg Tab.rapdis, 4 MG PO Q6H PRN for NAUSEA/VOMITING Prescribed by: GENNA PAULINO on 06/03/202100 Prednisone 10 Mg Tab.ds.pk, 10 MG PO DAILY Take 6 tabs(60mg)daily,decrease by 1 tab(10MG)daily. Prescribed by: RORY KING on 07/06/192234 Prednisone 20 Mg Tab, 40 MG PO DAILY Prescribed by: GENNA PAULINO on 06/03/202100 Prednisone 20 Mg Tab, 40 MG PO DAILY Prescribed by: GERARDO FRANCIS on 07/16/20109 Patient Home Medication List Home Medication List Reviewed: Yes Review of Systems Review of Systems Constitutional: see HPI EENTM: see HPI Respiratory: see HPI, cough, wheezing Cardiovascular: no symptoms reported Genitourinary: no symptoms reported Musculoskeletal: no symptoms reported Skin: no symptoms reported Psychiatric/Neurological: No Symptoms Reported Hematologic/Lymphatic: No Symptoms Reported Immunological/Allergic: no symptoms reported Past Zwzragl-Jgibps-Yrgkjn Hx Patient Social History Drug of Choice: MARIJUANA Type Used: Cigarettes Former Smoker, Quit: Jul 02, 2020 2nd Hand Smoke Exposure: Yes Recent Hopitalizations: No Immunizations Up To Date Tetanus Booster (TDap): Unknown PED Vaccines UTD: Yes Date of Influenza Vaccine: May 02, 2020 Seasonal Allergies Seasonal Allergies: Yes Past Medical History Surgeries: Yes (hymenectoy, wisdom teeth) Section Respiratory: Yes Asthma Cardiac: No Neurological: No Reproductive Disorders: No Genitourinary: No Gastrointestinal: No Musculoskeletal: No Endocrine: No HEENT: No Cancer: No Psychosocial: No Integumentary: No Blood Disorders: No Adverse Reaction/Blood Tranf: No Family Medical History Arthritis 19 FATHER, Onset:40's - 50 No Family History of: AIDS Abdominal aortic aneurysm Ambrocio's disease Alcoholism Alzheimer's disease Aphasia Asthma Cancer of mouth Cardiovascular disease Cataracts Colon cancer Completed stroke Congenital disease Congenital heart disease Coronary thrombosis Cystic fibrosis Deafness or hearing loss Dementia Diabetes mellitus Drug abuse Dysphasia Fibrocystic disease of breast Gastroenteritis Glaucoma Headache disorder Hypercholesterolemia Hypertension Infertility Kidney disease Myocardial infarction Neoplasm Not obtainable due to adoption Osteoporosis Parkinson's disease Prostate cancer Psychosocial problem Respiratory disorder Seizure disorder Severe allergy Thyroid disease Tuberculosis Visual disorder No Pertinent Family Hx Physical Exam Vital Signs - First Documented 07/30/20 17:07 Temp 35.8 Pulse 98 Resp 22 B/P (MAP) 118/87 (97) Pulse Ox 95 O2 Delivery Room Air Capillary Refill : Height: 5'1.00" Weight: 198lbs. 0.0oz. 89.131117pw; 27.00 BMI Method:Stated General Appearance: WD/WN, no apparent distress Eyes: Bilateral Eye Normal Inspection, Bilateral Eye PERRL, Bilateral Eye EOMI Respiratory: no respiratory distress, no accessory muscle use Cardiovascular: regular rate, rhythm, no murmur Gastrointestinal: normal bowel sounds, non tender, soft Neurologic/Psychiatric: alert, normal mood/affect, oriented x 3 Skin: normal color, warm/dry Progress/Results/Core Measures Suspected Sepsis SIRS Temperature: Pulse: Respiratory Rate: Laboratory Tests 07/30/20 17:15: White Blood Count 15.7H Blood Pressure / Mean: Laboratory Tests 07/30/20 17:15: Creatinine 0.81, Platelet Count 335 Results/Orders Lab Results Laboratory Tests Test 07/30/20 17:15 07/30/20 17:31 Range/Units White Blood Count 15.7 H 4.3-11.0 10^3/uL Red Blood Count 5.29 H 3.80-5.11 10^6/uL Hemoglobin 15.6 11.5-16.0 g/dL Hematocrit 48 35-52 % Mean Corpuscular Volume 90 80-99 fL Mean Corpuscular Hemoglobin 30 25-34 pg Mean Corpuscular Hemoglobin Concent 33 32-36 g/dL Red Cell Distribution Width 13.4 10.0-14.5 % Platelet Count 335 130-400 10^3/uL Mean Platelet Volume 9.9 9.0-12.2 fL Immature Granulocyte % (Auto) 1 % Neutrophils (%) (Auto) 55 42-75 % Lymphocytes (%) (Auto) 23 12-44 % Monocytes (%) (Auto) 7 0-12 % Eosinophils (%) (Auto) 14 H 0-10 % Basophils (%) (Auto) 1 0-10 % Neutrophils # (Auto) 8.7 H 1.8-7.8 10^3/uL Lymphocytes # (Auto) 3.5 1.0-4.0 10^3/uL Monocytes # (Auto) 1.1 H 0.0-1.0 10^3/uL Eosinophils # (Auto) 2.2 H 0.0-0.3 10^3/uL Basophils # (Auto) 0.1 0.0-0.1 10^3/uL Immature Granulocyte # (Auto) 0.1 0.0-0.1 10^3/uL Neutrophils % (Manual) 53 % Lymphocytes % (Manual) 21 % Monocytes % (Manual) 7 % Eosinophils % (Manual) 8 % Basophils % (Manual) 0 % Band Neutrophils 0 % Reactive Lymphocytes 11 % Blood Morphology Comment NORMAL Sodium Level 138 135-145 MMOL/L Potassium Level 4.3 3.6-5.0 MMOL/L Chloride Level 104 98-107 MMOL/L Carbon Dioxide Level 21 21-32 MMOL/L Anion Gap 13 5-14 MMOL/L Blood Urea Nitrogen 9 7-18 MG/DL Creatinine 0.81 0.60-1.30 MG/DL Estimat Glomerular Filtration Rate > 60 BUN/Creatinine Ratio 11 Glucose Level 75 70-105 MG/DL Calcium Level 9.2 8.5-10.1 MG/DL Serum Test, Qualitative NEGATIVE NEGATIVE Blood Gas Puncture Site LR Blood Gas Patient Temperature 35.8 Arterial Blood pH 7.42 7.37-7.43 Arterial Blood Partial Pressure CO2 34 L 35-45 MMHG Arterial Blood Partial Pressure O2 196 H 79-93 MMHG Arterial Blood HCO3 22 L 23-27 MMOL/L Arterial Blood Total CO2 23.1 21.0-31.0 MMOL/L Arterial Blood Oxygen Saturation 100 94-100 % Arterial Blood Base Excess -2.0 -2.5-2.5 MMOL/L Espinoza Test YES-POS Blood Gas Ventilator Setting NO Blood Gas Inspired Oxygen RA My Orders Orders - RORY KING APRN Chest 1 View, Ap/Pa Only (07/30/20 17:19) Cbc With Automated Diff (07/30/20 17:19) Basic Metabolic Panel (07/30/20 17:19) Hcg,Qualitative Serum (07/30/20 17:19) Ed Iv/Invasive Line Start (07/30/20 17:19) Prednisone Tablet (Deltasone Tablet) (07/30/20 17:30) Albuterol/Ipra Inhalation Soln (Duoneb I (07/30/20 17:30) Svn Small Volume Nebulizer (07/30/20 17:19) Manual Differential (07/30/20 17:15) Arterial Blood Gas (07/30/20 17:31) Medications Given in ED Current Medications Medications Dose Ordered Sig/Alexa Route Start Time Stop Time Status Last Admin Dose Admin Albuterol/ Ipratropium 6 ml ONCE ONCE INH 07/30/20 17:30 07/30/20 17:31 DC 07/30/20 17:27 6 ML Prednisone 60 mg ONCE ONCE PO 07/30/20 17:30 07/30/20 17:31 DC 07/30/20 18:01 60 MG Vital Signs/I&O 07/30/20 07/30/20 17:07 17:27 Temp 35.8 Pulse 98 Resp 22 B/P (MAP) 118/87 (97) Pulse Ox 95 98 O2 Delivery Room Air Room Air Capillary Refill : Departure Impression Primary Impression: Asthma exacerbation Qualified Codes: J45.41 - Moderate persistent asthma with (acute) exacerbation Disposition: 01 HOME, SELF-CARE Condition: Stable Departure-Patient Inst. Decision time for Depature: 18:00 Referrals: KAITLYN MCBRIDE MD (PCP/Family) Primary Care Physician Patient Instructions: Asthma, Adult (DC) Add. Discharge Instructions: 1. Return to ER for any concerns 2. Medication as directed. computer support technician your antibiotics from [facility]. 3. All discharge instructions reviewed with patient and/or family. Voiced understanding. Scripts Albuterol Sulfate (Albuterol Sulfate) 2.5 Mg/3 Ml Vial.neb 2.5 MG INH Q4H PRN for WHEEZING, #50 EA 1 Refill Prov: RORY KING ROOF BOLTER OPERATOR 07/30/20 Budesonide/Formoterol Fumarate (Budesonide-Formoterol 160-4.5) 10.2 Gm Hfa.aer.ad 2 PUFF IH BID, #1 EA Prov: RORY KING ROOF BOLTER OPERATOR 07/30/20 RORY KING ROOF BOLTER OPERATOR Jul 30, 2020 17:22
[2020-07-30 17:24] LABS: BASOPHILS # (AUTO) 0.1 10^3/uL (0.0-0.1); BASOPHILS % (AUTO) 1 % (0-10); EOSINOPHILS # (AUTO) 2.2 10^3/uL (0.0-0.3); EOSINOPHILS % (AUTO) 14 % (0-10); HEMATOCRIT 48 % (35-52); HEMOGLOBIN 15.6 g/dL (11.5-16.0); LYMPHOCYTES # (AUTO) 3.5 10^3/uL (1.0-4.0); LYMPHOCYTES % (AUTO) 23 % (12-44); MEAN CORPUSCULAR HEMOGLOBIN 30 pg (25-34); MEAN CORPUSCULAR HGB CONC 33 g/dL (32-36); MEAN CORPUSCULAR VOLUME 90 fL (80-99); MEAN PLATELET VOLUME 9.9 fL (9.0-12.2); MONOCYTES # (AUTO) 1.1 10^3/uL (0.0-1.0); MONOCYTES % (AUTO) 7 % (0-12); NEUTROPHILS # (AUTO) 8.7 10^3/uL (1.8-7.8); NEUTROPHILS % (AUTO) 55 % (42-75); PLATELET COUNT 335 10^3/uL (130-400); WHITE BLOOD COUNT 15.7 10^3/uL (4.3-11.0)
[2020-07-30] MEDS ORDERED: predniSONE 20 MG TAB PO ONE (17:30)
[2020-07-30] MEDS ORDERED: RT-ALBUTEROL/IPRATROPIUM 3 ML (DUONEB) VIAL INH ONE (17:30)
[2020-07-30 17:31] LABS: CHLORIDE 104 MMOL/L (98-107); POTASSIUM 4.3 MMOL/L (3.6-5.0); SODIUM 138 MMOL/L (135-145)
[2020-07-30 17:32] LABS: CALCIUM 9.2 MG/DL (8.5-10.1)
[2020-07-30 17:33] LABS: GLUCOSE 75 MG/DL (70-105)
[2020-07-30 17:34] LABS: CARBON DIOXIDE 21 MMOL/L (21-32)
[2020-07-30 17:37] LABS: CREATININE SERUM 0.81 MG/DL (0.60-1.30); GFR ESTIMATED > 60
[2020-07-30 17:38] LABS: BUN/CREATININE RATIO 11
[2020-07-30 17:38] LABS: ABG OXYGEN SATURATION 100 % (94-100); ABG PCO2 34 MMHG (35-45); ABG PH 7.42 (7.37-7.43); ABG PO2 196 MMHG (79-93); ABG TCO2 23.1 MMOL/L (21.0-31.0)
[2020-07-30 17:39] LABS: ALLENS TEST YES-POS; INSPIRED O2 RA; PATIENT TEMP 35.8; VENTILATOR NO
[2020-07-30 17:41] LABS: BAND NEUTROPHILS 0 %; BASOPHILS % (MANUAL) 0 %; EOSINOPHILS % (MANUAL) 8 %; LYMPHOCYTES % (MANUAL) 21 %; MONOCYTES % (MANUAL) 7 %; NEUTROPHILS % (MANUAL) 53 %; REACTIVE LYMPHOCYTES 11 %
[2020-07-30 17:42] LABS: RBC MORPH NORMAL
--- NOTE | 2020-07-30 17:55 | Diagnostic Imaging Report ---
EXAM: Chest 1 view, AP/PA only. INDICATION: Shortness of breath. Cough. COVID one month ago. COMPARISON: Chest radiograph 07/16/2020. FINDINGS: Normal heart size and pulmonary vascularity. No dense consolidation, pleural effusion or pneumothorax. No acute osseous finding. No significant change. IMPRESSION: No acute radiographic finding. Dictated by: Dictated on workstation # [id number]
[2020-07-30] MEDS ORDERED: BUDE10.26 IH (18:04)
[2020-07-30] MEDS ORDERED: ALBU2.5V4 INH (18:04)
[2020-07-30 18:28] VITALS: BP 123/88
== END 2020-07-30 18:28 ==
LOC: EDUNIT# 17:13 → ER 17:15
DX: J45.901 Unspecified asthma with (acute) exacerbation (principal); Z87.891 Personal history of nicotine dependence; Z88.0 Allergy status to penicillin; Z82.61 Family history of arthritis; Z79.52 Long term (current) use of systemic steroids
CPT/HCPCS: 36415; 71045; 80048; 82805; 84703; 85007; 85027; 94640

== ENCOUNTER 2021-12-09 09:10 | Emergency (ER) | payer MEDICAID ==
[~2021-12-09] VITALS: Ht 152 cm; Wt 90.0 kg
[~2021-12-09 09:10] MED LIST changes: +ALBU2.5V4 INH; +BUDE10.26 IH
[2021-12-09 09:26] VITALS: BP 121/88
--- NOTE | 2021-12-09 09:31 | ED Integumentary General ---
General Chief Complaint: Skin/Wound Problems Stated Complaint: SORE IN GROIN AREA Source: patient Exam Limitations: no limitations History of Present Illness Date Seen by Provider: Dec 09, 2021 Time Seen by Provider: 09:30 Initial Comments Patient is a 26-year-old female who presents to the emergency department today with a chief complaint of a "sore" on her right external labia. Patient states she noticed what looked like a little pimple 2 or 3 days ago. She states it is continued to get larger and more tender. It is not draining. She states she has had sores in her groin and under her right armpit in the past. She denies any recent fevers, chills, nausea vomiting diarrhea. She is approximately 27 weeks . Her primary care doctor is Dr. Mcbride. Patient states she had her boyfriend looked at it the other day and should she thinks he might of nicked it with a tweezers. However it has not drained. She denies burning with urination or abnormal vaginal discharge. All other review of systems reviewed and negative except as stated. Timing/Duration: getting worse (2-3 days) Location: genitalia Possible Cause: no cause identified Associated Symptoms: denies symptoms Allergies and Home Medications Allergies Coded Allergies: Penicillins (Unverified Allergy, Unknown, 03/05/16) Reports that her brother is allergic, so she doesn't want to take a chance with it. Patient Home Medication List Home Medication List Reviewed: Yes Acetaminophen with Codeine (Tylenol with Codeine #3 Tablet) 1 Each Tablet, 1 EACH PO Q6H PRN for COUGH Prescribed by: RORY KING on 07/06/192234 Albuterol Sulfate (Proair Hfa) 1 Puff Puff, 1-4 PUFF IH Q4H PRN for WHEEZING Prescribed by: GERARDO FRANCIS on 07/16/20 0110 Albuterol Sulfate (Albuterol Sulfate) 2.5 Mg/3 Ml Vial.neb, 2.5 MG INH Q4H PRN for WHEEZING Prescribed by: RORY KING on 07/30/20 1804 Azithromycin (Azithromycin) 250 Mg Tablet, 250 MG PO DAILY Prescribed by: RORY KING on 07/06/192234 Azithromycin (Azithromycin) 250 Mg Tablet, 250 MG PO DAILY Prescribed by: GENNA PAULINO on 06/03/202100 Benzonatate (Tessalon Perle) 100 Mg Capsule, 100 MG PO Q6H PRN for COUGH Prescribed by: GENNA PAULINO on 06/03/202100 Budesonide/Formoterol Fumarate (Budesonide-Formoterol 160-4.5) 10.2 Gm Hfa.aer.ad, 2 PUFF IH BID Prescribed by: RORY KING on 07/30/201803 Cefdinir (Cefdinir) 300 Mg Capsule, 300 MG PO BID Prescribed by: GENNA PAULINO on 06/03/202100 Doxycycline Hyclate (Doxycycline Hyclate) 100 Mg Tablet, 100 MG PO BID Prescribed by: RORY KING on 12/19/19 173 Hydrocodone Bit/Acetaminophen (Lortab 5 Mg Tablet) 1 Tab Tab, 1 EACH PO Q4H PRN for PAIN-MODERATE Prescribed by: JAMES BIANCHI on 10/25/18 0550 Hydrocodone/Acetaminophen (Lorcet 5-325 mg Tablet) 1 Each Tablet, 1 EACH PO Q4- 6HR PRN for PAIN-MODERATE Prescribed by: RORY KING on 12/19/19 173 Ibuprofen (Ibuprofen) 800 Mg Tablet, 800 MG PO Q6H Prescribed by: MARK LAZCANO on 09/26/18 0755 Loratadine (Claritin) 10 Mg Tablet, 10 MG PO DAILY Prescribed by: GERARDO FRANCIS on 07/16/20 0110 Ondansetron (Ondansetron Odt) 4 Mg Tab.rapdis, 4 MG PO Q6H PRN for NAUSEA/VOMITING Prescribed by: GENNA PAULINO on 06/03/202100 Prednisone (Prednisone) 10 Mg Tab.ds.pk, 10 MG PO DAILY Prescribed by: RORY KING on 07/06/192234 Prednisone (Prednisone) 20 Mg Tab, 40 MG PO DAILY Prescribed by: GENNA PAULINO on 06/03/202100 Prednisone (Prednisone) 20 Mg Tab, 40 MG PO DAILY Prescribed by: GERARDO FRANCIS on 07/16/20 0110 Review of Systems Review of Systems Constitutional: see HPI EENTM: no symptoms reported Respiratory: no symptoms reported Cardiovascular: no symptoms reported Gastrointestinal: no symptoms reported Genitourinary: no symptoms reported : Yes Musculoskeletal: no symptoms reported Skin: lumps (right labia) Past Xmfoykz-Nimhnv-Jldtfy Hx Immunizations Up To Date Tetanus Booster (TDap): Unknown PED Vaccines UTD: Yes Seasonal Allergies Seasonal Allergies: Yes Past Medical History Surgeries: Yes (hymenectomy, wisdom teeth) Section Respiratory: Yes Asthma Cardiac: No Neurological: No Reproductive Disorders: No Genitourinary: No Gastrointestinal: No Musculoskeletal: No Endocrine: No HEENT: No Cancer: No Psychosocial: No Integumentary: No Blood Disorders: No Adverse Reaction/Blood Tranf: No Family Medical History Arthritis 19 FATHER, Onset:40's - 50 No Family History of: AIDS Abdominal aortic aneurysm [place]'s disease Alcoholism Alzheimer's disease Aphasia Asthma Cancer of mouth Cardiovascular disease Cataracts Colon cancer Completed stroke Congenital disease Congenital heart disease Coronary thrombosis Cystic fibrosis Deafness or hearing loss Dementia Diabetes mellitus Drug abuse Dysphasia Fibrocystic disease of breast Gastroenteritis Glaucoma Headache disorder Hypercholesterolemia Hypertension Infertility Kidney disease Myocardial infarction Neoplasm Not obtainable due to adoption Osteoporosis Parkinson's disease Prostate cancer Psychosocial problem Respiratory disorder Seizure disorder Severe allergy Thyroid disease Tuberculosis Visual disorder No Pertinent Family Hx Physical Exam Vital Signs Vital Signs - First Documented 12/09/21 09:26 Temp 36.3 Pulse 84 Resp 16 B/P (MAP) 121/88 (99) Pulse Ox 94 O2 Delivery Room Air Capillary Refill : General Appearance: WD/WN, no apparent distress Cardiovascular: regular rate, rhythm Respiratory: lungs clear, normal breath sounds, no respiratory distress, no accessory muscle use Extremities: normal range of motion, non-tender, normal inspection Neurologic/Psychiatric: alert, normal mood/affect, oriented x 3 Skin: normal color, warm/dry Skin Problem Location: other (1-1/2 to 2 cm area of abscess noted inferior right labia majora. Fluctuance in the center of about half a centimeter. No spontaneous drainage. Tender to palpation. No significant surrounding erythema.) Procedures/Interventions I&D : Blade Size: 11 I & D Procedure: betadine prep Progress Area anesthetized with 1% plain lidocaine approximately 2 to 3 cc. #11 blade used to incise the center of the fluctuance with return of purulent material. Area was irrigated thoroughly. 1/4 inch plain packing was used in the wound Progress/Results/Core Measures Results/Orders My Orders Orders - JOSE JUAN ROSARIO MD Lidocaine 1% Inj 30 Ml (Xylocaine 1% Inj (12/09/21 10:00) Wound Culture (12/09/21 09:51) Hydrocodone/Apap 7.5/325 Tab (Lortab 7. (12/09/21 10:00) Lidocaine 1% Inj 20 Ml (Xylocaine 1% Inj (12/09/21 10:30) Lidocaine 1% Inj 20 Ml (Xylocaine 1% Inj (12/09/21 10:25) Medications Given in ED Current Medications Medications Dose Ordered Sig/Alexa Route Start Time Stop Time Status Last Admin Dose Admin Acetaminophen/ Hydrocodone Bitart 1 ea ONCE ONCE PO 12/09/21 10:00 12/09/21 10:01 DC 12/09/21 10:11 1 EA Lidocaine HCl 20 ml ONCE ONCE INJ 12/09/21 10:30 12/09/21 10:31 DC 12/09/21 10:27 20 ML Vital Signs/I&O 12/09/21 09:26 Temp 36.3 Pulse 84 Resp 16 B/P (MAP) 121/88 (99) Pulse Ox 94 O2 Delivery Room Air Departure Impression Primary Impression: Abscess Disposition: 01 HOME, SELF-CARE Condition: Stable Departure-Patient Inst. Decision time for Depature: 09:39 Referrals: KAITLYN MCBRIDE MD (PCP/Family) Primary Care Physician Add. Discharge Instructions: Keep the area clean and dry. Wash twice daily with soap and water. Soaking in a bathtub may also help keep the area clean and help with pain. You can soak in the bathtub with the packing in place. The packing will need to be pulled in 2 days. You can come back to the emergency department to have us do it and reevaluate the wound or watch it yourself at home. Please finish the full 7 days of the antibiotics. You can take extra strength Tylenol 2 tablets every 6 hours as needed for pain. If you develop a fever, worsening swelling, worsening redness or any other emergent, concerning issues please come back to the emergency department sooner for reevaluation. Scripts Cephalexin (Cephalexin) 500 Mg Tablet 500 MG PO TID, #21 TAB Prov: JOSE JUAN ROSARIO MD 12/09/21 JOSE JUAN ROSARIO MD Dec 09, 2021 09:31
[2021-12-09] MEDS ORDERED: LIDOCAINE 1% INJ 30 ML (XYLOCAINE) VIAL INJ ONE (10:00)
[2021-12-09] MEDS ORDERED: HYDROcodone/APAP 7.5 MG/325 MG (LORTAB, LORCET PLUS) TABLET PO ONE (10:00)
[2021-12-09] MEDS ORDERED: LIDOCAINE 1% INJ 20 ML VIAL ONE (10:25)
[2021-12-09] MEDS ORDERED: LIDOCAINE 1% INJ 20 ML VIAL INJ ONE (10:30)
[2021-12-09] MEDS ORDERED: CEPH500T PO (10:41)
== END 2021-12-09 11:08 | disposition home or self-care (01) ==
LOC: EDUNIT# 09:10 → ER 09:13
DX: O23.592 Infection of other part of genital tract in pregnancy, second trimester (principal); Z90.89 Acquired absence of other organs; Z3A.27 27 weeks gestation of pregnancy
CPT/HCPCS: 10061; 87070; 87077; 87186; 87205

== ENCOUNTER 2021-12-11 11:26 | Emergency (ER) | payer MEDICAID ==
[~2021-12-11] VITALS: Ht 165 cm; Wt 68.0 kg
--- NOTE | 2021-12-11 11:59 | ED Integumentary General ---
General Chief Complaint: Skin/Wound Problems Stated Complaint: FOLLOW UP FROM 12/09 - ABSCESS IN GROIN Nursing Triage Note: right labial wound packing is to be removed today per previous visit. states cultures were to be resuted today as well. was seen on the . Source: patient Exam Limitations: no limitations History of Present Illness Date Seen by Provider: Dec 11, 2021 Time Seen by Provider: 11:55 Initial Comments This is a 26-year-old female who presents to the emergency room for reevaluation of an abscess on the right labia. She had drained 2 days ago and states that she was told to come back for reevaluation. She has not filled her antibiotics as of now. She states that overall things are improving and she does not have any new complaints. Timing/Duration: week Location: genitalia Possible Cause: no cause identified Allergies and Home Medications Allergies Coded Allergies: Penicillins (Unverified Allergy, Unknown, 03/05/16) Reports that her brother is allergic, so she doesn't want to take a chance with it. Patient Home Medication List Home Medication List Reviewed: Yes Acetaminophen with Codeine (Tylenol with Codeine #3 Tablet) 1 Each Tablet, 1 EACH PO Q6H PRN for COUGH Prescribed by: RORY KING on 07/06/192234 Albuterol Sulfate (Proair Hfa) 1 Puff Puff, 1-4 PUFF IH Q4H PRN for WHEEZING Prescribed by: GERARDO FRANCIS on 07/16/20 0110 Albuterol Sulfate (Albuterol Sulfate) 2.5 Mg/3 Ml Vial.neb, 2.5 MG INH Q4H PRN for WHEEZING Prescribed by: RORY KNIG on 07/30/201803 Azithromycin (Azithromycin) 250 Mg Tablet, 250 MG PO DAILY Prescribed by: RORY KING on 07/06/192234 Azithromycin (Azithromycin) 250 Mg Tablet, 250 MG PO DAILY Prescribed by: GENNA PAULINO on 06/03/202100 Benzonatate (Tessalon Perle) 100 Mg Capsule, 100 MG PO Q6H PRN for COUGH Prescribed by: GENNA PAULINO on 06/03/202100 Budesonide/Formoterol Fumarate (Budesonide-Formoterol 160-4.5) 10.2 Gm Hfa.aer.ad, 2 PUFF IH BID Prescribed by: RORY KING on 07/30/20 180 Cefdinir (Cefdinir) 300 Mg Capsule, 300 MG PO BID Prescribed by: GENNA PALUINO on 06/03/202100 Cephalexin (Cephalexin) 500 Mg Tablet, 500 MG PO TID Prescribed by: JOSE JUAN ROSARIO on 12/09/21 1041 Doxycycline Hyclate (Doxycycline Hyclate) 100 Mg Tablet, 100 MG PO BID Prescribed by: RORY KING on 12/19/19 1734 Hydrocodone Bit/Acetaminophen (Lortab 5 Mg Tablet) 1 Tab Tab, 1 EACH PO Q4H PRN for PAIN-MODERATE Prescribed by: JAMES BIANCHI on 10/25/18 0550 Hydrocodone/Acetaminophen (Lorcet 5-325 mg Tablet) 1 Each Tablet, 1 EACH PO Q4- 6HR PRN for PAIN-MODERATE Prescribed by: RORY KING on 12/19/19 1734 Ibuprofen (Ibuprofen) 800 Mg Tablet, 800 MG PO Q6H Prescribed by: MARK LAZCANO on 09/26/18 0755 Loratadine (Claritin) 10 Mg Tablet, 10 MG PO DAILY Prescribed by: GERARDO FRANCIS on 07/16/20 011 Ondansetron (Ondansetron Odt) 4 Mg Tab.rapdis, 4 MG PO Q6H PRN for NA USEA/VOMITING Prescribed by: GENNA PAULINO on 06/03/202100 Prednisone (Prednisone) 10 Mg Tab.ds.pk, 10 MG PO DAILY Prescribed by: RORY KING on 07/06/192234 Prednisone (Prednisone) 20 Mg Tab, 40 MG PO DAILY Prescribed by: GENNA PAULINO on 06/03/202100 Prednisone (Prednisone) 20 Mg Tab, 40 MG PO DAILY Prescribed by: GERARDO FRANCIS on 07/16/20 0110 Review of Systems Review of Systems Constitutional: no symptoms reported EENTM: see HPI Respiratory: no symptoms reported Cardiovascular: no symptoms reported Gastrointestinal: no symptoms reported Genitourinary: see HPI : Yes Expected Date of Delivery: Mar 10, 2022 Musculoskeletal: no symptoms reported Skin: see HPI Psychiatric/Neurological: No Symptoms Reported Endocrine: No Symptoms Reported Hematologic/Lymphatic: No Symptoms Reported Past Wcjavas-Fbbljs-Iknubt Hx Immunizations Up To Date Tetanus Booster (TDap): Unknown PED Vaccines UTD: Yes Second COVID19 Vaccination Maury: UNKNOWN DATE Seasonal Allergies Seasonal Allergies: Yes Past Medical History Surgeries: Yes (hymenectomy, wisdom teeth) Section Respiratory: Yes Asthma Cardiac: No Neurological: No Expected Date of Delivery: Mar 10, 2022 Reproductive Disorders: No Genitourinary: No Gastrointestinal: No Musculoskeletal: No Endocrine: No HEENT: No Cancer: No Psychosocial: No Integumentary: No Blood Disorders: No Adverse Reaction/Blood Tranf: No Family Medical History Arthritis 19 FATHER, Onset:40's - 50 No Family History of: AIDS Abdominal aortic aneurysm [place]'s disease Alcoholism Alzheimer's disease Aphasia Asthma Cancer of mouth Cardiovascular disease Cataracts Colon cancer Completed stroke Congenital disease Congenital heart disease Coronary thrombosis Cystic fibrosis Deafness or hearing loss Dementia Diabetes mellitus Drug abuse Dysphasia Fibrocystic disease of breast Gastroenteritis Glaucoma Headache disorder Hypercholesterolemia Hypertension Infertility Kidney disease Myocardial infarction Neoplasm Not obtainable due to adoption Osteoporosis Parkinson's disease Prostate cancer Psychosocial problem Respiratory disorder Seizure disorder Severe allergy Thyroid disease Tuberculosis Visual disorder No Pertinent Family Hx Physical Exam Vital Signs Vital Signs - First Documented 12/11/21 11:46 Temp 36.8 Pulse 90 Resp 18 B/P (MAP) 140/63 (88) Pulse Ox 96 Capillary Refill : General Appearance: WD/WN, no apparent distress HEENT: PERRL/EOMI, normal ENT inspection Neck: non-tender Cardiovascular: regular rate, rhythm Respiratory: chest non-tender Gastrointestinal: non tender, soft Back: normal inspection Extremities: normal range of motion Neurologic/Psychiatric: research hydrologist II-XII nml as tested Skin: normal color, other (Well-healing abscess to the right labia. I did remove 2 cm of packing. Minimal drainage noted.) Skin Problem Character: abscess Lymphatic: no adenopathy Progress/Results/Core Measures Results/Orders Vital Signs/I&O 12/11/21 11:46 Temp 36.8 Pulse 90 Resp 18 B/P (MAP) 140/63 (88) Pulse Ox 96 Blood Pressure Mean: 88 Departure Impression Primary Impression: Abscess Disposition: 01 HOME, SELF-CARE Condition: Stable Departure-Patient Inst. Decision time for Depature: 11:58 Referrals: KAITLYN MCBRIDE MD (PCP/Family) Primary Care Physician Patient Instructions: Abscess Incision and Drainage Add. Discharge Instructions: Please continue to do warm soaks as we discussed. Return to the emergency room with any severe changes or worsening of symptoms. Make sure that you fill your antibiotics as we discussed All discharge instructions reviewed with patient and/or family. Voiced un derstanding. DAYSI ALEXANDER Dec 11, 2021 11:59
[2021-12-11 12:09] VITALS: BP 140/63
== END 2021-12-11 12:09 | disposition home or self-care (01) ==
LOC: EDUNIT# 11:26 → ER 11:28
DX: N76.4 Abscess of vulva (principal)

== ENCOUNTER 2021-12-15 01:20 | Emergency (ER) | payer MEDICAID ==
[~2021-12-15] VITALS: Ht 155 cm; Wt 91.2 kg
[2021-12-15 01:25] VITALS: BP 125/77
[2021-12-15] MEDS ORDERED: MUPI22OI2 TP (01:59)
--- NOTE | 2021-12-15 01:59 | ED Integumentary General ---
General Chief Complaint: Skin/Wound Problems Stated Complaint: STAPH INFECTION ON FACE Nursing Triage Note: c/o staff infection to right chin states pimple popped 12/13/21 started cephalexin 12/14/21 Source: patient History of Present Illness Date Seen by Provider: Dec 15, 2021 Time Seen by Provider: 01:50 Initial Comments PT ARRIVES VIA POV FROM HOME STATES SHE HAD A PIMPLE ON HER RIGHT CHIN AREA AND PICKED AT IT/POPPED IT YESTERDAY TONIGHT THE AREA HAS BECOME SWOLLEN NO DRAINAGE FROM THE AREA PT HAS HISTORY OF MRSA PT WAS SEEN HERE 12/09/21 FOR ABSCESS TO RIGHT LABIA--I&D WAS DONE AND WAS PRESCRIBED KEFLEX, WHICH PT DID NOT FILL UNTIL 12/14/21 PT SEEN HERE 12/11/21 FOR RECHECK OF ABSCESS, WAS REPORTEDLY DOING BETTER, HAD NOT FILLED HER ANTIBIOTIC PRESCRIPTION SHE HAS ONLY TAKEN ONE DOSE OF THE ANTIBIOTIC SINCE GETTING IT FILLED ON 12/14/21. 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 MCBRIDE Allergies and Home Medications Allergies Coded Allergies: Penicillins (Unverified Allergy, Unknown, 03/05/16) Reports that her brother is allergic, so she doesn't want to take a chance with it. Patient Home Medication List Home Medication List Reviewed: Yes Cephalexin (Cephalexin) 500 Mg Tablet, 500 MG PO TID Prescribed by: JOSE JUAN ROSARIO on 12/09/21 1041 Last Action: Reviewed Mupirocin (Mupirocin) 2 % Oint...g., 22 GM TP BID Prescribed by: JAMES BIANCHI on 12/15/21 0159 Discontinued Medications Acetaminophen with Codeine (Tylenol with Codeine #3 Tablet) 1 Each Tablet, 1 EACH PO Q6H PRN for COUGH Discontinued Reason: No Longer Taking Prescribed by: RORY KING on 07/06/19 2235 Last Action: Discontinued Albuterol Sulfate (Proair Hfa) 1 Puff Puff, 1-4 PUFF IH Q4H PRN for WHEEZING Discontinued Reason: No Longer Taking Prescribed by: GERARDO FRANCIS on 07/16/20 0110 Last Action: Discontinued Albuterol Sulfate (Albuterol Sulfate) 2.5 Mg/3 Ml Vial.neb, 2.5 MG INH Q4H PRN for WHEEZING Discontinued Reason: No Longer Taking Prescribed by: RORY KING on 07/30/201803 Last Action: Discontinued Azithromycin (Azithromycin) 250 Mg Tablet, 250 MG PO DAILY Discontinued Reason: No Longer Taking Prescribed by: RORY KING on 07/06/192234 Last Action: Discontinued Azithromycin (Azithromycin) 250 Mg Tablet, 250 MG PO DAILY Discontinued Reason: No Longer Taking Prescribed by: GENNA PAULINO on 06/03/202100 Last Action: Discontinued Benzonatate (Tessalon Perle) 100 Mg Capsule, 100 MG PO Q6H PRN for COUGH Discontinued Reason: No Longer Taking Prescribed by: GENNA PAULINO on 06/03/202100 Last Action: Discontinued Budesonide/Formoterol Fumarate (Budesonide-Formoterol 160-4.5) 10.2 Gm Hfa.aer.ad, 2 PUFF IH BID Discontinued Reason: No Longer Taking Prescribed by: RORY KING on 07/30/201803 Last Action: Discontinued Cefdinir (Cefdinir) 300 Mg Capsule, 300 MG PO BID Discontinued Reason: No Longer Taking Prescribed by: GENNA PAULINO on 06/03/202100 Last Action: Discontinued Doxycycline Hyclate (Doxycycline Hyclate) 100 Mg Tablet, 100 MG PO BID Discontinued Reason: No Longer Taking Prescribed by: RORY KING on 12/19/191733 Last Action: Discontinued Hydrocodone Bit/Acetaminophen (Lortab 5 Mg Tablet) 1 Tab Tab, 1 EACH PO Q4H PRN for PAIN-MODERATE Discontinued Reason: No Longer Taking Prescribed by: JAMES BIANCHI on 10/25/18 0550 Last Action: Discontinued Hydrocodone/Acetaminophen (Lorcet 5-325 mg Tablet) 1 Each Tablet, 1 EACH PO Q4- 6HR PRN for PAIN-MODERATE Discontinued Reason: No Longer Taking Prescribed by: RORY KING on 12/19/191733 Last Action: Discontinued Ibuprofen (Ibuprofen) 800 Mg Tablet, 800 MG PO Q6H Discontinued Reason: No Longer Taking Prescribed by: MARK ALZCANO on 09/26/18 0755 Last Action: Discontinued Loratadine (Claritin) 10 Mg Tablet, 10 MG PO DAILY Discontinued Reason: No Longer Taking Prescribed by: GERARDO FRANCIS on 07/16/20 0110 Last Action: Discontinued Ondansetron (Ondansetron Odt) 4 Mg Tab.rapdis, 4 MG PO Q6H PRN for NAUSEA/VOMITING Discontinued Reason: No Longer Taking Prescribed by: GENNA PAULINO on 06/03/202100 Last Action: Discontinued Prednisone (Prednisone) 10 Mg Tab.ds.pk, 10 MG PO DAILY Discontinued Reason: No Longer Taking Prescribed by: RORY KING on 07/06/192234 Last Action: Discontinued Prednisone (Prednisone) 20 Mg Tab, 40 MG PO DAILY Discontinued Reason: No Longer Taking Prescribed by: GENNA PAULINO on 06/03/202100 Last Action: Discontinued Prednisone (Prednisone) 20 Mg Tab, 40 MG PO DAILY Discontinued Reason: No Longer Taking Prescribed by: GERARDO FRANCIS on 07/16/20 011 Last Action: Discontinued Review of Systems Review of Systems Constitutional: no symptoms reported EENTM: see HPI Respiratory: no symptoms reported Cardiovascular: no symptoms reported Gastrointestinal: no symptoms reported Genitourinary: no symptoms reported : Yes Musculoskeletal: no symptoms reported Skin: see HPI Psychiatric/Neurological: No Symptoms Reported Endocrine: No Symptoms Reported Hematologic/Lymphatic: No Symptoms Reported Past Yjzfins-Nroydx-Racttr Hx Patient Social History Tobacco Use?: Yes Tobacco type used: Cigarettes Smoking Status: Current Everyday Smoker Substance use?: No Alcohol Use?: Yes Alcohol Frequency: Once in a while Pt feels they are or have been: No Immunizations Up To Date Tetanus Booster (TDap): Unknown PED Vaccines UTD: Yes First/Initial COVID19 Vaccinat: may 22 Second COVID19 Vaccination Maury: may 22 Seasonal Allergies Seasonal Allergies: Yes Past Medical History Surgery/Hospitalization HX: gerd, asthma Surgeries: Yes (hymenectomy, wisdom teeth; LEFT KNEE ) Section, Gallbladder, Orthopedic, Tonsillectomy Respiratory: Yes Asthma Cardiac: No Neurological: No Reproductive Disorders: No Genitourinary: No Gastrointestinal: No Musculoskeletal: No Endocrine: No HEENT: No Cancer: No Psychosocial: No Integumentary: No Blood Disorders: No Adverse Reaction/Blood Tranf: No Family Medical History Arthritis 19 FATHER, Onset:40's - 50 No Family History of: AIDS Abdominal aortic aneurysm [place]'s disease Alcoholism Alzheimer's disease Aphasia Asthma Cancer of mouth Cardiovascular disease Cataracts Colon cancer Completed stroke Congenital disease Congenital heart disease Coronary thrombosis Cystic fibrosis Deafness or hearing loss Dementia Diabetes mellitus Drug abuse Dysphasia Fibrocystic disease of breast Gastroenteritis Glaucoma Headache disorder Hypercholesterolemia Hypertension Infertility Kidney disease Myocardial infarction Neoplasm Not obtainable due to adoption Osteoporosis Parkinson's disease Prostate cancer Psychosocial problem Respiratory disorder Seizure disorder Severe allergy Thyroid disease Tuberculosis Visual disorder No Pertinent Family Hx Physical Exam Vital Signs Vital Signs - First Documented 12/15/21 01:25 Temp 36.4 Pulse 87 Resp 16 B/P (MAP) 125/77 (93) Pulse Ox 97 O2 Delivery Room Air Capillary Refill : Less Than 3 Seconds General Appearance: WD/WN, no apparent distress HEENT: other (RIGHT CHIN/MANDIBLE AREA WITH OPEN WOUND AND MILD SURROUNDING SWELLING. NO DRAINAGE. NO FLUCUTANCE. NO BLEEDING. NO STREAKS, NO ERYTHEMA ) Skin: normal color, warm/dry, other ( ABOVE. MULTIPLE SORES/SCARS/SCABS TO FACE. ) Progress/Results/Core Measures Results/Orders Vital Signs/I&O 12/15/21 01:25 Temp 36.4 Pulse 87 Resp 16 B/P (MAP) 125/77 (93) Pulse Ox 97 O2 Delivery Room Air Blood Pressure Mean: 93 Departure Impression Primary Impression: INFECTED SORE ON FACE WITH MILD LOCAL CELLULITIS Additional Impressions: Hx MRSA infection 27-28 completed weeks of gestation Disposition: HOME, SELF-CARE Condition: Stable Departure-Patient Inst. Decision time for Depature: 01:56 Referrals: KAITLYN MCBRIDE MD (PCP/Family) Primary Care Physician Patient Instructions: MRSA (DC), Cellulitis (Skin Infection), Child (DC) Add. Discharge Instructions: CLEAN AREA 2-3 TIMES A DAY WITH ANTIBACTERIAL SOAP AND WATER--SUCH HIBICLENS TAKE YOUR CEPHALEXIN ANTIBIOTIC PRESCRIBED TYLENOL NEEDED FOR PAIN DO NOT PICK AT, SQUEEZE, OR POKE ANY AREAS OF YOUR SKIN WARM COMPRESSES TO THE AREA AT 20 MINUTE INTERVALS FOLLOW UP WITH DR. MCBRIDE THIS WEEK FOR FURTHER CARE All discharge instructions reviewed with patient and/or family. Voiced understanding. Scripts Mupirocin (Mupirocin) 2 % Oint...g. 22 GM TP BID, #1 TUBE Prov: JAMES BIANCHI DO 12/15/21 JAMES BIANCHI DO Dec 15, 2021 01:59
== END 2021-12-15 02:01 | disposition home or self-care (01) ==
LOC: EDUNIT# 01:20 → ER 01:23
DX: O99.713 Diseases of the skin and subcutaneous tissue complicating pregnancy, third trimester (principal); L03.211 Cellulitis of face; O99.333 Smoking (tobacco) complicating pregnancy, third trimester; F17.210 Nicotine dependence, cigarettes, uncomplicated; Z86.14 Personal history of Methicillin resistant Staphylococcus aureus infection; Z3A.28 28 weeks gestation of pregnancy
CPT/HCPCS: 99281

== ENCOUNTER 2022-02-11 01:32 | Outpatient (CLI) | payer MEDICAID ==
[~2022-02-11] VITALS: Ht 154.9 cm; Wt 96.0 kg
[~2022-02-11 01:32] MED LIST changes: +MUPI22OI2 TP
[2022-02-11 02:30] VITALS: BP_SYST 121; BP_SYST 126; BP_DIAS 63
[2022-02-11 02:45] VITALS: BP 111/61
[2022-02-11 03:45] VITALS: BP 111/60
[2022-02-11 04:45] VITALS: BP 112/55
[2022-02-11 05:45] VITALS: BP 139/68
[2022-02-11] MEDS ORDERED: PREN-98 PO (05:46)
--- NOTE | 2022-02-13 08:15 | Physician Query-Final Dx ---
MARY LOU,02/13/22 0814: Clinic Account Progress/Dx Physician Query: Please give diagnosis Please include # weeks gestation Date of Service Feb 11, 2022 at 01:32 MARK JERNIGAN MD 02/14/22 1012: Clinic Account Progress/Dx DIAGNOSIS: Diagnosis 36 weeks with false labor ,JulFeb 13, 2022 08:14 MARK JERNIGAN MD Feb 14, 2022 10:12
== END 2022-02-11 05:55 | disposition home or self-care (01) ==
LOC: WSo 01:32 → LDRP 01:41 → WSo 05:55
PROVIDERS: ATTEND Family Medicine
DX: O26.893 Other specified pregnancy related conditions, third trimester (principal); Z3A.36 36 weeks gestation of pregnancy
CPT/HCPCS: 99213

== ENCOUNTER 2022-02-23 06:02 | Outpatient (CLI) | payer MEDICAID ==
[~2022-02-23] VITALS: Ht 154.9 cm; Wt 96.6 kg
[~2022-02-23 06:02] MED LIST changes: +PREN-98 PO
== END 2022-02-27 11:58 ==
LOC: PREOP 06:02
PROVIDERS: ATTEND Obstetrics & Gynecology
DX: Z01.818 Encounter for other preprocedural examination (principal)

== ENCOUNTER 2022-03-03 05:28 | Inpatient (IN) | payer MEDICAID ==
[~2022-03-03] VITALS: Ht 156 cm; Wt 96.8 kg
[2022-03-03] VITALS (11 sets, daily range): BP systolic 111–131; BP diastolic 53–81
[2022-03-03] MEDS ORDERED: CITRIC ACID/SOB CIT (BICITRA) 30 ML UDC PO ONE (05:45)
[2022-03-03] MEDS ORDERED: METOCLOPRAMIDE INJ 10 MG/2 ML (REGLAN) IV ONE (05:45)
[2022-03-03] MEDS ORDERED: LACTATED RINGERS 1,000 ML IV PRN ×2 (05:45)
[2022-03-03] MEDS ORDERED: CATHETER FLUSH 10 ML SYR IV PRN (05:45)
[2022-03-03] MEDS ORDERED: CLINDAMYCIN 900 MG/50 ML IVPB 50 ML IV ONE (05:45)
[2022-03-03] MEDS ORDERED: FAMOTIDINE 20MG/2ML IV (PEPCID) ONE (05:53)
[2022-03-03] MEDS ORDERED: FAMOTIDINE 20MG/2ML IV (PEPCID) IV ONE (06:00)
[2022-03-03 06:05] LABS: BASOPHILS # (AUTO) 0.1 10^3/uL (0.0-0.1); BASOPHILS % (AUTO) 1 % (0-10); EOSINOPHILS # (AUTO) 0.4 10^3/uL (0.0-0.3); EOSINOPHILS % (AUTO) 2 % (0-10); HEMATOCRIT 39 % (35-52); HEMOGLOBIN 13.4 g/dL (11.5-16.0); LYMPHOCYTES # (AUTO) 3.3 10^3/uL (1.0-4.0); LYMPHOCYTES % (AUTO) 22 % (12-44); MEAN CORPUSCULAR HEMOGLOBIN 29 pg (25-34); MEAN CORPUSCULAR HGB CONC 35 g/dL (32-36); MEAN CORPUSCULAR VOLUME 85 fL (80-99); MEAN PLATELET VOLUME 10.9 fL (9.0-12.2); MONOCYTES # (AUTO) 1.1 10^3/uL (0.0-1.0); MONOCYTES % (AUTO) 7 % (0-12); NEUTROPHILS # (AUTO) 10.1 10^3/uL (1.8-7.8); NEUTROPHILS % (AUTO) 67 % (42-75); PLATELET COUNT 261 10^3/uL (130-400); WHITE BLOOD COUNT 15.1 10^3/uL (4.3-11.0)
[2022-03-03] MEDS ORDERED: fentaNYL INJ 100 MCG/2 ML AMP ONE (06:59)
[2022-03-03] MEDS ORDERED: OXYC1TAB12 PO (06:59)
[2022-03-03] MEDS ORDERED: OXYTOCIN PRE-MIX DRIP 1,000 ML IV ONE (06:59)
[2022-03-03] MEDS ORDERED: IBUP-1780 PO (06:59)
[2022-03-03] MEDS ORDERED: DOCU-143 PO (06:59)
[2022-03-03] MEDS ORDERED: CLINDAMYCIN 900 MG/50 ML IVPB 50 ML IV NR (07:00)
[2022-03-03] MEDS ORDERED: BUPIVACAINE 0.5% 30 ML (SENSORCAINE) VIAL ONE (07:00)
--- NOTE | 2022-03-03 07:02 | Discharge Inst-Surgical ---
Discharge Inst-Surgical Depart Medication/Instructions New, Converted or Re-Newed RX: Transmitted to Pharmacy Consults/Follow Up Patient Instructions: As directed Orders & Referrals Follow Up Appt: RTC 1 week for incision check With Dr. Valdez Call to make follow up appt. for patient in [address] Tran. Wound Care: Remove rebecca, apply benzoin and steri strips. Activity Per routine post instructions. Continue home medication Diet as tolerated Patient may shower or tub bathe as desired. Continue home meds Activity Activity as Tolerated: No Diet Discharge Diet: No Restrictions MARK VALDEZ MD Mar 03, 2022 07:02
[2022-03-03] MEDS ORDERED: fentaNYL INJ 100 MCG/2 ML AMP IVP PRN (08:45)
[2022-03-03] MEDS ORDERED: OXYTOCIN PRE-MIX DRIP 500 ML IV SCH (08:45)
[2022-03-03] MEDS ORDERED: TETANUS,DIPTH,PERTUSS P/F (BOOSTRIX) 0.5 ML VIAL IM ONE (08:45)
[2022-03-03] MEDS ORDERED: D5 LR IV SOLUTION 1,000 ML IV SCH (08:45)
[2022-03-03] MEDS ORDERED: KETOROLAC 30 MG/ML VIAL ONE (08:59)
[2022-03-03] MEDS: KETOROLAC 30 MG/ML VIAL IV SCH ×3 (09:06→20:31)
--- NOTE | 2022-03-03 15:14 | OPERATIVE REPORT ---
DATE OF SERVICE: 03/03/2022 PREOPERATIVE DIAGNOSIS: Term at 39 weeks' gestation with previous . POSTOPERATIVE DIAGNOSIS: Term at 39 weeks' gestation with previous . OPERATIVE PROCEDURE: Repeat low transverse delivery of a viable female infant with Apgars of 8 and 9 at 1 and 5 minutes respectively, weight of 7 pounds 6 ounces. Cord blood pH was 7.31 and time was 07:37. CHAMBER WALKER FOR DELIVERY: Dr. Tran. GUARD MANAGER FOR DELIVERY: Dr. Tran. OPERATIVE DESCRIPTION: With the patient in supine position under satisfactory spinal analgesia, the patient was prepped and draped in the usual fashion for abdominal surgery. Cedillo catheter was placed in the urinary bladder. A Pfannenstiel incision was made through the skin with scalpel, the patient's abdomen was entered in the usual manner. Bladder retractor placed in position. A clean scalpel used to make a 4 cm hysterotomy incision transversely across the lower uterine segment that was extended by blunt dissection as well. Clear fluid was released on hysterotomy. Gerard forceps were applied to facilitate the delivery of a vigorous viable female infant. had Apgars and stats as noted above. The was bulb suctioned on delivery of the head by Dr. Tran and then again on completion of delivery. Umbilical cord was doubly clamped and cut and Dr. Tran took the baby to the warmer. Cord bloods were obtained. The placenta delivered spontaneously [place]. It was normal with a three-vessel cord. The uterus was exteriorized and interior wiped clean with a wet laparotomy sponge. Uterine incision was closed with running locked suture of 2-0 Vicryl. Hemostasis was complete. The uterus was returned to abdominal cavity. All blood clot and debris removed from the abdominal cavity. Sponge and needle counts were correct and hemostasis assured, the anterior parietal peritoneum was closed with a running suture of 2-0 Vicryl. Rectus muscles were closed with that suture as well. The rectus fascia was closed with 2-0 Vicryl, subcutaneous tissue was closed with 2-0 Vicryl and the skin was stapled. Sponge and needle counts were correct on completion of the procedure. Blood loss was around 500 mL. The patient tolerated the procedure well and was transferred to the recovery room in stable condition. The infant had been taken stable to the full term nursery under the care of the pediatric nurse. Job ID: [id number] DocumentID: [id number] Dictated Date: 03/03/2022 10:04:34 Hydroelectric Machinery Mechanic Helper Date: 03/03/2022 15:13:11 Dictated By: MARK JERNIGAN MD
[2022-03-03] MEDS: oxyCODONE/APAP 10/325MG (PERCOCET 10) TABLET PO PRN (17:15)
[2022-03-03] MEDS: DOCUSATE SODIUM 100 MG (COLACE) CAP PO SCH (20:30)
[2022-03-04] MEDS: KETOROLAC 30 MG/ML VIAL IV SCH (02:28)
[2022-03-04 03:33] VITALS: BP 113/58
[2022-03-04] MEDS: oxyCODONE/APAP 10/325MG (PERCOCET 10) TABLET PO PRN ×3 (03:33→14:33)
[2022-03-04] MEDS: DOCUSATE SODIUM 100 MG (COLACE) CAP PO SCH ×2 (08:43→20:55)
[2022-03-04] MEDS: IBUPROFEN 800 MG (MOTRIN) TAB PO SCH ×3 (08:44→20:55)
[2022-03-04 08:46] VITALS: BP 117/59
--- NOTE | 2022-03-04 09:30 | Progress Note ---
Standard Progress Note Progress Notes/Assess & Plan Date Seen by a Provider: Mar 04, 2022 Time Seen by a Provider: 09:29 Progress/Assessment & Plan This patient is without complaint. She is ambulating, voiding, tolerating oral intake well and has good pain control. Vital Signs Date Time Temp Pulse Resp B/P (MAP) Pulse Ox O2 Delivery O2 Flow Rate FiO2 03/04/22 08:46 36.4 77 18 117/59 (78) 96 Room Air 03/04/22 03:33 36.3 75 18 113/58 (76) 96 03/03/22 23:30 36.5 67 18 118/58 (78) 97 Room Air 03/03/22 20:30 36.6 78 18 123/59 (80) 96 Room Air 03/03/22 17:16 36.7 79 18 126/60 (82) 95 Room Air 03/03/22 14:42 Room Air 03/03/22 12:24 36.1 77 18 111/53 (72) 96 Room Air 03/03/22 10:18 36.4 74 18 117/56 (76) 95 Room Air 03/03/22 09:35 36.2 89 18 113/56 (75) 96 Room Air I & O 03/04/22 07:00 Intake Total 2750 ml Output Total 1875 ml Balance 875 ml Vital signs are stable. Patient is afebrile. Fundus is firm below the umbilicus and nontender. Surgical incision is clean d ry and intact. Extremities show no clubbing cyanosis. There is no Homans' sign. Assessment and plan Postoperative day 1 status post repeat delivery doing well. Plans for routine convalescent care with consideration for discharge home tomorrow MARK JERNIGAN MD Mar 04, 2022 09:30
[2022-03-04 12:20] VITALS: BP 118/55
[2022-03-04] MEDS ORDERED: MEASLES,MUMPS,RUBELLA 1 EA INJ SC ONE (14:15)
[2022-03-04] MEDS ORDERED: TETANUS,DIPTH,PERTUSS P/F (BOOSTRIX) 0.5 ML VIAL IM ONE (14:15)
[2022-03-04 17:45] VITALS: BP 127/61
[2022-03-04 21:00] VITALS: BP 130/60
[2022-03-05 03:00] VITALS: BP 112/59
[2022-03-05] MEDS: IBUPROFEN 800 MG (MOTRIN) TAB PO SCH ×3 (03:00→14:14)
[2022-03-05] MEDS: DOCUSATE SODIUM 100 MG (COLACE) CAP PO SCH (08:36)
[2022-03-05 08:40] VITALS: BP 124/58
--- NOTE | 2022-03-05 09:34 | Progress Note ---
Standard Progress Note Progress Notes/Assess & Plan Date Seen by a Provider: Mar 05, 2022 Time Seen by a Provider: 09:33 Progress/Assessment & Plan This patient is without complaint. She is ambulating, voiding, tolerating oral intake well and has good pain control. Vital Signs Date Time Temp Pulse Resp B/P (MAP) Pulse Ox O2 Delivery O2 Flow Rate FiO2 03/04/22 08:46 36.4 77 18 117/59 (78) 96 Room Air 03/04/22 03:33 36.3 75 18 113/58 (76) 96 03/03/22 23:30 36.5 67 18 118/58 (78) 97 Room Air 03/03/22 20:30 36.6 78 18 123/59 (80) 96 Room Air 03/03/22 17:16 36.7 79 18 126/60 (82) 95 Room Air 03/03/22 14:42 Room Air 03/03/22 12:24 36.1 77 18 111/53 (72) 96 Room Air 03/03/22 10:18 36.4 74 18 117/56 (76) 95 Room Air 03/03/22 09:35 36.2 89 18 113/56 (75) 96 Room Air I & O 03/04/22 07:00 Intake Total 2750 ml Output Total 1875 ml Balance 875 ml Vital signs are stable. Patient is afebrile. Fundus is firm below the umbilicus and nontender. Surgical incision is clean d ry and intact. Extremities show no clubbing cyanosis. There is no Homans' sign. Assessment and plan Postoperative day 1 status post repeat delivery doing well. Plans for routine convalescent care with consideration for discharge home tomorrow March 05, 2022 Patient is without complaint. She is ambulating, voiding, tolerating oral intake well and has good pain control. Patient denies chest pain, denies shortness of breath, denies nausea or vomiting, and denies headache Vital Signs Date Time Temp Pulse Resp B/P (MAP) Pulse Ox O2 Delivery O2 Flow Rate FiO2 03/05/22 08:40 36.7 72 18 124/58 (80) 96 Room Air 03/05/22 03:00 36.8 63 18 112/59 (76) 97 Room Air 03/04/22 21:00 36.4 83 18 130/60 (83) 96 03/04/22 17:45 36.9 84 18 127/61 (83) 97 Room Air 03/04/22 12:20 37.0 77 18 118/55 (76) 96 Room Air Vital signs are stable. Patient is afebrile. The abdomen is benign. The surgical incision is clean dry and intact. Fundus is firm below the umbilicus and nontender. Extremities show no clubbing or cyanosis. There is no Homans' sign. Assessment and plan Postoperative day #2 status post repeat delivery doing well. Plan is for routine convalescent careWith discharge home today or tomorrow as the patient prefers Final Diagnosis 39-week repeat delivery MARK JERNIGAN MD Mar 05, 2022 09:34
[2022-03-05 14:15] VITALS: BP 110/79
--- NOTE | 2022-03-05 14:44 | Anesthesia-Regional Post-Op ---
Regional Patient Condition Mental Status: Alert, Oriented x3 Circulation: Same as Pre-Op Headache: Absent Sensation: Full Recovery Motor Block: Absent Post Op Complications Complications None Follow Up Care/Instructions Patient Instructions None needed. Anesthesia/Patient Condition Patient is doing well, no complaints, stable vital signs, no apparent adverse anesthesia problems. No complications reported per nursing. KINSEY SAGE CRNA Mar 05, 2022 14:44
[2022-03-05 18:10] VITALS: BP 110/79
== END 2022-03-05 18:10 | disposition home or self-care (01) | DRG 788 ==
LOC: LDRP 05:28
PROVIDERS: ADMIT Obstetrics & Gynecology; ATTEND Obstetrics & Gynecology
PROC: 10D00Z1 Extraction of Products of Conception, Low, Open Approach (ICD-10-PCS; principal; 2022-03-03 07:19)
DX: O34.211 Maternal care for low transverse scar from previous cesarean delivery (principal); Z3A.39 39 weeks gestation of pregnancy; Z37.0 Single live birth; Z88.0 Allergy status to penicillin; Z23 Encounter for immunization
CPT/HCPCS: 36415; 83033; 85025; 86850; 86900; 86901; 87081; 90707; 90715; 94664

== ENCOUNTER 2022-03-12 08:41 | Emergency (ER) | payer MEDICAID ==
[~2022-03-12] VITALS: Ht 154.9 cm; Wt 81.6 kg
[~2022-03-12 08:41] MED LIST changes: +DOCU-143 PO
[2022-03-12 10:04] LABS: BASOPHILS # (AUTO) 0.1 10^3/uL (0.0-0.1); BASOPHILS % (AUTO) 1 % (0-10); EOSINOPHILS # (AUTO) 0.4 10^3/uL (0.0-0.3); EOSINOPHILS % (AUTO) 4 % (0-10); HEMATOCRIT 40 % (35-52); HEMOGLOBIN 13.1 g/dL (11.5-16.0); LYMPHOCYTES # (AUTO) 1.4 10^3/uL (1.0-4.0); LYMPHOCYTES % (AUTO) 13 % (12-44); MEAN CORPUSCULAR HEMOGLOBIN 28 pg (25-34); MEAN CORPUSCULAR HGB CONC 33 g/dL (32-36); MEAN CORPUSCULAR VOLUME 85 fL (80-99); MEAN PLATELET VOLUME 9.5 fL (9.0-12.2); MONOCYTES # (AUTO) 0.7 10^3/uL (0.0-1.0); MONOCYTES % (AUTO) 7 % (0-12); NEUTROPHILS # (AUTO) 7.6 10^3/uL (1.8-7.8); NEUTROPHILS % (AUTO) 74 % (42-75); PLATELET COUNT 350 10^3/uL (130-400); WHITE BLOOD COUNT 10.2 10^3/uL (4.3-11.0)
[2022-03-12] MEDS ORDERED: SULF1TAB38 PO (11:04)
[2022-03-12] MEDS ORDERED: CEPH500T PO (11:04)
--- NOTE | 2022-03-12 11:04 | ED Abdominal Pain ---
General Chief Complaint: Post OP Complications/Pain Stated Complaint: CSECTION 03/03 DRAINAGE FROM WOUND Nursing Triage Note: PT AMBULATE TO ROOM 08 WITH C/O POST COMPLICATIONS. PT REPORTS X1 WEEK. PT STATES HER WOUND SITE IS RED WITH THICK, YELLOW DRAINAGE. PT REPORTS A HARDENED AREA TO THE RIGHT SIDE OF SITE. PT DENIES PAIN AT SITE AND STATES WHEN SHE BENDS OVER OR STRETCHES HER ABD SHE CAN FEEL SHARP PAIN UNDER THE SITE. Source of Information: Patient Exam Limitations: No Limitations Allergies and Home Medications Allergies Coded Allergies: Penicillins (Unverified Allergy, Unknown, 03/05/16) Reports that her brother is allergic, so she doesn't want to take a chance with it. Patient Home Medication List Cephalexin (Cephalexin) 500 Mg Tablet, 500 MG PO QID Prescribed by: GERARDO FRANCIS on 03/12/22 1104 Docusate Sodium (Colace) 100 Mg Capsule, 100 MG PO BID Prescribed by: MARK LAZCANO on 03/03/22 0659 Ibuprofen (Ibuprofen) 800 Mg Tablet, 800 MG PO Q6H PRN for PAIN Prescribed by: MARK LAZCANO on 03/03/22 0659 Oxycodone HCl/Acetaminophen (Percocet 10-325 mg Tablet) 1 Each Tablet, 1 TAB PO Q4H PRN for PAIN-MODERATE Prescribed by: MARK LAZCANO on 03/03/22 0700 Vit37/Iron/Folic Acid (Prenata Chewable Tablet) 29 Mg Iron-1 Mg Tab.chew, 1 EACH PO, (Reported) Entered as Reported by: ANGELINA ADAME on 02/11/22 0546 Sulfamethoxazole/Trimethoprim (Bactrim Ds Tablet) 1 Each Tablet, 1 EACH PO BID Prescribed by: GERARDO FRANCIS on 03/12/22 1104 Past Adyzkxf-Pglluc-Mdyhia Hx Patient Social History Tobacco Use?: Yes Tobacco type used: Cigarettes Smoking Status: Current Everyday Smoker Smokeless Tobacco Frequency: Never a User Use of E-Cig and/or Vaping dev: No Use of E-Cig and/or Vaping Usman: Never a User Substance use?: No Alcohol Use?: No Pt feels they are or have been: No Immunizations Up To Date Tetanus Booster (TDap): Unknown PED Vaccines UTD: Yes First/Initial COVID19 Vaccinat: may 22 Second COVID19 Vaccination Maury: may 22 Third COVID19 Vaccination Date: NO Seasonal Allergies Seasonal Allergies: Yes Past Medical History Surgery/Hospitalization HX: gerd, asthma Surgeries: Yes (hymenectomy, wisdom teeth; LEFT KNEE ) Section, Gallbladder, Orthopedic, Tonsillectomy Respiratory: Yes Asthma Cardiac: No Neurological: No Reproductive Disorders: No Genitourinary: No Gastrointestinal: No Musculoskeletal: No Endocrine: No HEENT: No Cancer: No Psychosocial: No Integumentary: No Blood Disorders: No Adverse Reaction/Blood Tranf: No Family Medical History Arthritis 19 FATHER, Onset:40's - 50 No Family History of: AIDS Abdominal aortic aneurysm [place]'s disease Alcoholism Alzheimer's disease Aphasia Asthma Cancer of mouth Cardiovascular disease Cataracts Colon cancer Completed stroke Congenital disease Congenital heart disease Coronary thrombosis Cystic fibrosis Deafness or hearing loss Dementia Diabetes mellitus Drug abuse Dysphasia Fibrocystic disease of breast Gastroenteritis Glaucoma Headache disorder Hypercholesterolemia Hypertension Infertility Kidney disease Myocardial infarction Neoplasm Not obtainable due to adoption Osteoporosis Parkinson's disease Prostate cancer Psychosocial problem Respiratory disorder Seizure disorder Severe allergy Thyroid disease Tuberculosis Visual disorder No Pertinent Family Hx Physical Exam Vital Signs Vital Signs - First Documented 03/12/22 09:08 Temp 36.4 Pulse 77 Resp 17 B/P (MAP) 123/73 (90) O2 Delivery Room Air Capillary Refill : Less Than 3 Seconds Height/Weight/BMI Height: 5'1.00" Weight: 198lbs. 0.0oz. [id number]; 34.00 BMI Method:Stated Progress/Results/Core Measures Results/Orders Lab Results Laboratory Tests Test 03/12/22 09:59 Range/Units White Blood Count 10.2 4.3-11.0 10^3/uL Red Blood Count 4.68 3.80-5.11 10^6/uL Hemoglobin 13.1 11.5-16.0 g/dL Hematocrit 40 35-52 % Mean Corpuscular Volume 85 80-99 fL Mean Corpuscular Hemoglobin 28 25-34 pg Mean Corpuscular Hemoglobin Concent 33 32-36 g/dL Red Cell Distribution Width 13.5 10.0-14.5 % Platelet Count 350 130-400 10^3/uL Mean Platelet Volume 9.5 9.0-12.2 fL Immature Granulocyte % (Auto) 1 % Neutrophils (%) (Auto) 74 42-75 % Lymphocytes (%) (Auto) 13 12-44 % Monocytes (%) (Auto) 7 0-12 % Eosinophils (%) (Auto) 4 0-10 % Basophils (%) (Auto) 1 0-10 % Neutrophils # (Auto) 7.6 1.8-7.8 10^3/uL Lymphocytes # (Auto) 1.4 1.0-4.0 10^3/uL Monocytes # (Auto) 0.7 0.0-1.0 10^3/uL Eosinophils # (Auto) 0.4 H 0.0-0.3 10^3/uL Basophils # (Auto) 0.1 0.0-0.1 10^3/uL Immature Granulocyte # (Auto) 0.1 0.0-0.1 10^3/uL C-Reactive Protein High Sensitivity 6.74 H 0.00-0.50 MG/DL My Orders Orders - GERARDO LYNN MD Cbc With Automated Diff (03/12/22 09:47) Hs C Reactive Protein (03/12/22 09:47) Ed Iv/Invasive Line Start (03/12/22 10:00) Vital Signs/I&O 03/12/22 09:08 Temp 36.4 Pulse 77 Resp 17 B/P (MAP) 123/73 (90) O2 Delivery Room Air Blood Pressure Mean: 90 Departure Impression Primary Impression: Dehiscence of incision Qualified Codes: T81.31XA - Disruption of external operation (surgical) wound, not elsewhere classified, initial encounter Additional Impression: Skin induration Disposition: 20 Condition: Stable Departure-Patient Inst. Decision time for Depature: 11:01 Referrals: KAITLYN MCBRIDE MD (PCP/Family) Primary Care Physician Patient Instructions: Wound Dehiscence Add. Discharge Instructions: The firm, full area near your incision likely represents a seroma or hematoma, possibly caused by trauma when you fell. There may be secondary infection, and antibiotics are therefore being prescribed. Keep your wound clean and dry except for normal showering. Use the nonstick sterile dressing to cover the wound and keep it clean. Complete your antibiotics as prescribed. You may continue using pain medications to manage your symptoms. Keep your appointment with Dr. JERNIGAN this week. Avoid heavy lifting, excessive bending, or strenuous activity until cleared by Dr. JERNIGAN. Return to the emergency room if you have worsening symptoms including escalating pain, fever, etc. Scripts Sulfamethoxazole/Trimethoprim (Bactrim Ds Tablet) 1 Each Tablet 1 EACH PO BID, #14 TAB Prov: GERARDO LYNN MD 03/12/22 Cephalexin (Cephalexin) 500 Mg Tablet 500 MG PO QID, #28 TAB Prov: GERARDO LYNN MD 03/12/22 Copy Copies To 1: MARK JERNIGAN MD, JOSHUA T MD Mar 12, 2022 11:04
[2022-03-12 11:25] VITALS: BP 129/68
[2022-03-12] MEDS ORDERED: TRIM/SULFAMETH 160/800 (SEPTRA DS) TAB PO ONE (11:30)
[2022-03-12] MEDS ORDERED: CEPHALEXIN 250 MG (KEFLEX) CAP PO ONE (11:30)
== END 2022-03-12 11:25 | disposition expired ==
LOC: EDUNIT# 08:41 → ER 08:45
DX: O90.0 Disruption of cesarean delivery wound (principal); O99.335 Smoking (tobacco) complicating the puerperium; F17.210 Nicotine dependence, cigarettes, uncomplicated
CPT/HCPCS: 36415; 85025; 86141

== ENCOUNTER 2022-05-13 14:55 | Emergency (ER) | payer MEDICAID ==
[~2022-05-13] VITALS: Ht 154.9 cm; Wt 86.1 kg
[~2022-05-13 14:55] MED LIST changes: +ALBU8.5H6 IH; -RT-ALBUINH IH; +SULF1TAB38 PO
[2022-05-13] MEDS ORDERED: RT-ALBUTEROL/IPRATROPIUM 3 ML (DUONEB) VIAL INH ONE (15:15)
[2022-05-13] MEDS ORDERED: ALBU2.5V4 INH (15:15)
[2022-05-13] MEDS ORDERED: predniSONE 20 MG TAB PO ONE (15:15)
[2022-05-13] MEDS ORDERED: PRD50T PO (15:15)
--- NOTE | 2022-05-13 15:15 | ED Respiratory ---
General Chief Complaint: Respiratory Problems Stated Complaint: SOA Nursing Triage Note: PT TO RM 6 WITH CC OF SOA FOR A WEEK. PT STATES WAS SEEN YESTERDAY AT [facility] TESTED NEGATIVE FOR COVID AND STARTED ON AN ANTIBIOTIC. PT STATES "CHEST SORE" WHEN COUGHING. UNK FEVER. PT HX OF ASTHMA Source: patient Exam Limitations: no limitations History of Present Illness Date Seen by Provider: May 13, 2022 Time Seen by Provider: 15:00 Initial Comments 27 year old female comes to the ER today for shortness of breath. She states symptoms of been present for about a week week and a half. She was seen at clinic yesterday and given doxycycline and tested for COVID which was reportedly negative. She continues to have shortness of breath and wheezing. She does have a history of asthma. She has not been on any steroid medications. She does have a nebulizer at home but mouthpiece is broken so she cannot use it. She denies any fevers but has had chills. She has had a mildly productive cough. Again she was started on doxycycline yesterday. Allergies and Home Medications Allergies Coded Allergies: Penicillins (Unverified Allergy, Unknown, 03/05/16) Reports that her brother is allergic, so she doesn't want to take a chance with it. Patient Home Medication List Home Medication List Reviewed: Yes Albuterol Sulfate (Albuterol Sulfate) 2.5 Mg/3 Ml (0.083 %) Vial.neb, 2.5 MG INH Q4H Prescribed by: ZHANG HEART MD on 05/13/22 1515 Cephalexin (Cephalexin) 500 Mg Tablet, 500 MG PO QID Prescribed by: GERARDO FRANCIS on 03/12/22 1104 Docusate Sodium (Colace) 100 Mg Capsule, 100 MG PO BID Prescribed by: MARK LAZCANO on 03/03/22 0659 Ibuprofen (Ibuprofen) 800 Mg Tablet, 800 MG PO Q6H PRN for PAIN Prescribed by: MARK LAZCANO on 03/03/22 0659 Oxycodone HCl/Acetaminophen (Percocet 10-325 mg Tablet) 1 Each Tablet, 1 TAB PO Q4H PRN for PAIN-MODERATE Prescribed by: MARK LAZCANO on 03/03/22 0700 Prednisone (Prednisone) 50 Mg Tab, 50 MG PO DAILY Prescribed by: ZHANG HEART MD on 05/13/22 1515 Vit37/Iron/Folic Acid (Prenata Chewable Tablet) 29 Mg Iron-1 Mg Tab.chew, 1 EACH PO, (Reported) Entered as Reported by: ANGELINA JOHNDEX on 02/11/22 0546 Sulfamethoxazole/Trimethoprim (Bactrim Ds Tablet) 1 Each Tablet, 1 EACH PO BID Prescribed by: GERARDO FRANCIS on 03/12/22 1104 Review of Systems Review of Systems Constitutional: no symptoms reported EENTM: no symptoms reported Respiratory: cough, short of breath Cardiovascular: no symptoms reported Gastrointestinal: no symptoms reported Genitourinary: no symptoms reported Musculoskeletal: no symptoms reported Skin: no symptoms reported Psychiatric/Neurological: No Symptoms Reported Hematologic/Lymphatic: No Symptoms Reported Immunological/Allergic: no symptoms reported Past Pcsslmv-Thkebo-Duhkma Hx Patient Social History Tobacco Use?: Yes Tobacco type used: Cigarettes Substance use?: No Alcohol Use?: No Pt feels they are or have been: No Immunizations Up To Date Tetanus Booster (TDap): Unknown PED Vaccines UTD: Yes First/Initial COVID19 Vaccinat: may 22 Second COVID19 Vaccination Maury: may 22 Third COVID19 Vaccination Date: NO Seasonal Allergies Seasonal Allergies: Yes Past Medical History Surgery/Hospitalization HX: gerd, asthma Surgeries: Yes (hymenectomy, wisdom teeth; LEFT KNEE ) Section, Gallbladder, Orthopedic, Tonsillectomy Respiratory: Yes Asthma Cardiac: No Neurological: No Reproductive Disorders: No Genitourinary: No Gastrointestinal: No Musculoskeletal: No Endocrine: No HEENT: No Cancer: No Psychosocial: No Integumentary: No Blood Disorders: No Adverse Reaction/Blood Tranf: No Family Medical History Arthritis 19 FATHER, Onset:40's - 50 No Family History of: AIDS Abdominal aortic aneurysm [place]'s disease Alcoholism Alzheimer's disease Aphasia Asthma Cancer of mouth Cardiovascular disease Cataracts Colon cancer Completed stroke Congenital disease Congenital heart disease Coronary thrombosis Cystic fibrosis Deafness or hearing loss Dementia Diabetes mellitus Drug abuse Dysphasia Fibrocystic disease of breast Gastroenteritis Glaucoma Headache disorder Hypercholesterolemia Hypertension Infertility Kidney disease Myocardial infarction Neoplasm Not obtainable due to adoption Osteoporosis Parkinson's disease Prostate cancer Psychosocial problem Respiratory disorder Seizure disorder Severe allergy Thyroid disease Tuberculosis Visual disorder No Pertinent Family Hx Physical Exam Vital Signs - First Documented 05/13/22 14:55 Temp 36.7 Pulse 108 Resp 20 B/P (MAP) 143/70 (94) Pulse Ox 95 O2 Delivery Room Air Capillary Refill : Less Than 3 Seconds Height: 5'1.00" Weight: 198lbs. 0.0oz. 89.816572gz; 35.00 BMI Method:Stated General Appearance: WD/WN, no apparent distress HEENT: normal ENT inspection, pharynx normal Neck: non-tender, supple, normal inspection Respiratory: chest non-tender, no accessory muscle use, other (Patient int ermittently will have a large he like breathing raising her shoulders up in the air but this ceases intermittently. There is no intercostal or subcostal retractions at all. No respiratory distress. She does have moderate inspiratory and expiratory wheezing bilaterally.) Cardiovascular: regular rate, rhythm, no edema, no gallop, no JVD, no murmur Gastrointestinal: normal bowel sounds, non tender, soft, no organomegaly, no pulsatile mass Extremities: normal range of motion, non-tender, normal inspection, no pedal edema, no calf tenderness, normal capillary refill Neurologic/Psychiatric: alert, normal mood/affect, oriented x 3 Skin: normal color, warm/dry Lymphatic: no adenopathy Progress/Results/Core Measures Suspected Sepsis SIRS Temperature: Pulse: 108 Respiratory Rate: 20 Blood Pressure 143 /70 Mean: 94 Results/Orders My Orders Orders - ZHANG HEART DO Albuterol/Ipra Inhalation Soln (Duoneb I (05/13/22 15:15) Prednisone Tablet (Deltasone Tablet) (05/13/22 15:15) Svn Small Volume Nebulizer (05/13/22 15:08) Medications Given in ED Vital Signs/I&O 05/13/22 05/13/22 05/13/22 14:55 15:39 15:40 Temp 36.7 Pulse 108 108 Resp 20 20 B/P (MAP) 143/70 (94) 143/70 Pulse Ox 95 97 95 O2 Delivery Room Air Room Air Room Air Capillary Refill : Less Than 3 Seconds Blood Pressure Mean: 94 Departure Communication (Admissions) Patient is hemodynamically stable. Symptoms greatly improved with provided nebulized treatments. She was also given oral steroid prior to discharge. She is discharged with a mouthpiece for her nebulizer so she may use it at home, the albuterol liquid, prednisone. She is already on doxycycline at home we will continue just to cover for any community-acquired pneumonia. She is discharged home in stable condition. Impression Primary Impression: Asthma exacerbation Qualified Codes: J45.21 - Mild intermittent asthma with (acute) exacerbation Disposition: HOME, SELF-CARE Condition: Stable Departure-Patient Inst. Referrals: KAITLYN MCBRIDE MD (PCP/Family) Primary Care Physician Patient Instructions: Asthma, Adult (DC) Add. Discharge Instructions: Take the prednisone daily as prescribed. Use the albuterol liquid and your nebulizer as needed every 4 hours. Continue to take the doxycycline previously prescribed. Return to the emergency department for any severe concerns. Follow-up with your primary doctor for any nonemergent needs. All discharge instructions reviewed with patient and/or family. Voiced understanding. Scripts Albuterol Sulfate (Albuterol Sulfate) 2.5 Mg/3 Ml (0.083 %) Vial.neb 2.5 MG INH Q4H for Wheezing for 30 Days, #30 EA 1 Refill Prov: ZHANG HEART DO 05/13/22 Prednisone (Prednisone) 50 Mg Tab 50 MG PO DAILY for 5 Days, #5 TAB Prov: ZHANG HEART DO 05/13/22 ZHANG HEART DO May 13, 2022 15:15
[2022-05-13 15:40] VITALS: BP 143/70
== END 2022-05-13 15:40 | disposition home or self-care (01) ==
LOC: EDUNIT# 14:55 → ER 14:57
DX: J45.901 Unspecified asthma with (acute) exacerbation (principal); F17.210 Nicotine dependence, cigarettes, uncomplicated
CPT/HCPCS: 94640

== ENCOUNTER 2023-05-31 05:37 | Outpatient (CLI) | payer MEDICAID ==
[~2023-05-31] VITALS: Ht 154.9 cm; Wt 104.1 kg
[~2023-05-31 05:37] MED LIST changes: +PRD50T PO
[2023-05-31] MEDS ORDERED: ACET-168 PO (10:08)
[2023-05-31] MEDS ORDERED: AZIT500T2 PO (10:08)
== END 2023-05-31 10:35 | disposition home or self-care (01) ==
LOC: PREOP 05:37
PROVIDERS: ATTEND Obstetrics & Gynecology
DX: Z01.818 Encounter for other preprocedural examination (principal)

== ENCOUNTER 2023-06-07 05:13 | Inpatient (IN) | payer MEDICAID ==
[2023-06-07] VITALS (10 sets, daily range): BP systolic 110–138; BP diastolic 51–85
[~2023-06-07] VITALS: Ht 158 cm; Wt 101.9 kg
[~2023-06-07 05:13] MED LIST changes: +ACET-168 PO; +AZIT500T2 PO
[2023-06-07] MEDS ORDERED: LACTATED RINGERS 1,000 ML 1,000 ML IV PRN ×2 (05:30)
[2023-06-07] MEDS ORDERED: FAMOTIDINE INJ 20MG/2ML VIAL IV ONE (05:30)
[2023-06-07] MEDS ORDERED: METOCLOPRAMIDE INJ 10 MG/2 ML IV ONE (05:30)
[2023-06-07] MEDS ORDERED: CITRIC ACID/SODIUM CITRATE ORAL SOLN 30 ML PO ONE (05:30)
[2023-06-07] MEDS ORDERED: ceFAZolin INJECTION 2,000 MG in NS (IVPB) 50 ML 50 ML IV ONE (05:30)
[2023-06-07 05:50] LABS: BASOPHILS # (AUTO) 0.1 10^3/uL (0.0-0.1); BASOPHILS % (AUTO) 1 % (0-10); EOSINOPHILS # (AUTO) 0.3 10^3/uL (0.0-0.3); EOSINOPHILS % (AUTO) 2 % (0-10); HEMATOCRIT 41 % (35-52); HEMOGLOBIN 13.4 g/dL (11.5-16.0); LYMPHOCYTES # (AUTO) 2.8 10^3/uL (1.0-4.0); LYMPHOCYTES % (AUTO) 26 % (12-44); MEAN CORPUSCULAR HEMOGLOBIN 27 pg (25-34); MEAN CORPUSCULAR HGB CONC 33 g/dL (32-36); MEAN CORPUSCULAR VOLUME 82 fL (80-99); MONOCYTES # (AUTO) 0.8 10^3/uL (0.0-1.0); MONOCYTES % (AUTO) 7 % (0-12); NEUTROPHILS # (AUTO) 6.5 10^3/uL (1.8-7.8); NEUTROPHILS % (AUTO) 62 % (42-75); PLATELET COUNT 265 10^3/uL (130-400); WHITE BLOOD COUNT 10.6 10^3/uL (4.3-11.0)
[2023-06-07 06:50] LABS: BILIRUBIN,URINE NEGATIVE (NEGATIVE); CLARITY,URINE CLOUDY; COLOR,URINE YELLOW; GLUCOSE, URINE (UA) NEGATIVE (NEGATIVE); KETONES,URINE NEGATIVE (NEGATIVE); LEUKOCYTE ESTERASE ,URINE 1+ (NEGATIVE); NITRITE,URINE NEGATIVE (NEGATIVE); PH,URINE 6.5 (5-9); PROTEIN,URINE TRACE (NEGATIVE)
[2023-06-07 06:51] LABS: BACTERIA,URINE MODERATE /HPF; SQUAMOUS EPITHELIAL CELL,UR 25-50 /HPF
[2023-06-07] MEDS ORDERED: NALOXONE 0.4 MG/ML 1 ML VIAL IV PRN (07:15)
[2023-06-07] MEDS ORDERED: Tetanus/Diphtheria/Pertussis (Acell) ADULT Vaccine 0.5 ML IM SCH (07:15)
[2023-06-07] MEDS ORDERED: ONDANSETRON INJECTION 4 MG/2 ML (SDV) IVP PRN (07:15)
[2023-06-07] MEDS ORDERED: MEASLES, MUMPS, RUBELLA VACCINE (MMR) SC SCH (07:15)
[2023-06-07] MEDS ORDERED: CLINDAMYCIN 900 MG/50 ML IVPB 50 ML IV ONE (07:45)
[2023-06-07] MEDS ORDERED: fentaNYL INJECTION 100 MCG/2 ML VIAL ONE (07:56)
[2023-06-07] MEDS ORDERED: RT-ALBUTEROL HFA 8.5 GM INHALER IH PRN (08:00)
[2023-06-07] MEDS ORDERED: KETOROLAC INJ 30 MG/ML VIAL ONE (08:47)
[2023-06-07] MEDS ORDERED: OXYTOCIN DRIP PRE-MIX 500 ML IV ONE (08:47)
[2023-06-07] MEDS ORDERED: BUPIVACAINE 0.5% 30 ML VIAL ONE (08:50)
[2023-06-07] MEDS: RT-ALBUTEROL HFA 8.5 GM INHALER IH SCH ×4 (10:55→22:30)
[2023-06-07] MEDS: OXYTOCIN DRIP PRE-MIX 500 ML IV SCH ×2 (11:17→15:21)
[2023-06-07] MEDS: HYDROcodone/ACETAMINOPHEN 5 MG/325 MG TABLET PO PRN (12:44)
[2023-06-07] MEDS: DOCUSATE SODIUM 100 MG CAPSULE PO SCH ×2 (12:44→20:15)
[2023-06-07] MEDS ORDERED: CATHETER FLUSH 10 ML SYR IV SCH (14:00)
[2023-06-07] MEDS: KETOROLAC INJ 30 MG/ML VIAL IV SCH ×2 (15:22→20:15)
--- NOTE | 2023-06-07 18:32 | OPERATIVE REPORT ---
DATE OF SERVICE: 06/07/2023 PREOPERATIVE DIAGNOSES: 1. A 28-year-old female at 39 weeks' gestation. 2. Previous section x3. POSTOPERATIVE DIAGNOSES: 1. A 28-year-old female at 39 weeks' gestation. 2. Previous section x3. PROCEDURE: Repeat low-transverse section. SURGEON: Hari Carrillo DO ANESTHESIA: Spinal. ESTIMATED BLOOD LOSS: 500 mL. URINE OUTPUT: 50 mL clear at the end of the procedure. FLUIDS: 1500 mL lactated Ringer's solution. FINDINGS: A live female infant, weighing 6 pounds 7 ounces, Apgars of 9 and 9. Grossly normal appearing uterus, bilateral fallopian tubes and ovaries. SPECIMEN SENT: None. INDICATIONS FOR PROCEDURE: This patient had sought her care with [facility] and was referred to my office for repeat . In her preoperative visit, we discussed the risks, benefits and alternatives of the in detail, including risk of bleeding, infection, damage to surrounding structures including but not limited to bowel, bladder, ureter, kidneys, possible need for reoperation, postoperative complications that may occur, recovery timeframe, risk from anesthesia and even . After everything was discussed with the patient in detail, she was agreeable to proceed. Consent was obtained, the patient was taken to the operating room. OPERATIVE DESCRIPTION IN DETAIL: Once in the operating room, spinal analgesia was found to be adequate. She was placed in supine position with leftward tilt, prepped and draped in normal sterile fashion. A timeout was performed. Anesthesia was tested. I then made a Pfannenstiel skin incision through previous existing scar using knife and carried underlying fascia using Bovie cautery. The fascial incision extended laterally using Bovie cautery. The superior aspect of fascial incision was then grasped with Cass clamps, tented up and dissected off the underlying rectus muscles. The inferior aspect of the fascial incision was then grasped with Cass clamps, tented up and dissected off the underlying rectus muscles. Rectus muscles were dissected down the midline using sharp dissection, which exposed the peritoneum, which I entered bluntly and extended using blunt traction. Hemanth ring retractor was placed in the peritoneal incision, which offers excellent lateral sidewall retraction. I identified the lower uterine segment, found to be thinned out. I made a low transverse incision to the vesicouterine peritoneum and bluntly dissected off the lower uterine segment, creating a bladder flap. I then proceeded my myotomy until membranes were visualized, at which point I extended the uterine incision laterally and superiorly using bandage scissors. Amniotomy was performed. In the process of doing this, clear fluid was noted. Infant found in vertex presentation. With gentle fundal pressure, the infant's head was elevated up to the incision where the nares and oropharynx were bulb suctioned. Anterior and posterior shoulders were delivered. The infant was brought to the operative field with cord doubly clamped and cut. Infant was handed off to waiting nurses in attendance. Cord blood was collected. Three-vessel cord intact placenta was delivered spontaneously thereafter. IV Pitocin was initiated to facilitate uterine contraction. Uterine fundus confirmed by manual massage. The uterus was then exteriorized and cleared of all endometrial clots and debris. I then proceeded with closing the uterine incision using 0 Vicryl suture in a running locked fashion. Second layer of imbricating 0 Monocryl was placed. Excellent hemostasis was noted after doing this. I then placed the uterus back in the pelvis and copiously irrigated the pelvis using normal saline. Once again, there was no active bleeding noted from any of my dissection planes. I placed Interceed antiadhesive over my low transverse incision. I removed the Hemanth ring retractor and then proceeded with closing the peritoneum and rectus muscles in interrupted fashion using 3-0 Vicryl suture. The fascia was reapproximated using 0 Vicryl suture in a running fashion. The subcutaneous tissue was reapproximated with 0 plain interrupted subcutaneous stitch and the skin was reapproximated using 4-0 Monocryl running subcuticular. Dermabond was applied to incision, sterile dressing was adhesed with white tape. The patient tolerated the procedure well and was taken to recovery area in stable condition. Lap and sponge counts were correct at the end of the procedure. Instrument count was correct as well; 900 mg of clindamycin was given IV due to her ANCEF AND PENICILLIN ALLERGY. Job ID: [id number] DocumentID: [id number] Dictated Date: 06/07/2023 09:13:27 Financial Services Specialist Date: 06/07/2023 18:30:00 Dictated By: HARI CARRILLO DO
[2023-06-08 00:28] VITALS: BP 106/57
[2023-06-08] MEDS: RT-ALBUTEROL HFA 8.5 GM INHALER IH SCH ×3 (02:18→10:26)
[2023-06-08] MEDS: KETOROLAC INJ 30 MG/ML VIAL IV SCH (02:40)
[2023-06-08 04:59] VITALS: BP 100/61
[2023-06-08 06:50] LABS: BASOPHILS # (AUTO) 0.1 10^3/uL (0.0-0.1); BASOPHILS % (AUTO) 1 % (0-10); EOSINOPHILS # (AUTO) 0.4 10^3/uL (0.0-0.3); EOSINOPHILS % (AUTO) 3 % (0-10); HEMATOCRIT 34 % (35-52); HEMOGLOBIN 11.1 g/dL (11.5-16.0); LYMPHOCYTES # (AUTO) 2.4 10^3/uL (1.0-4.0); LYMPHOCYTES % (AUTO) 22 % (12-44); MEAN CORPUSCULAR HEMOGLOBIN 27 pg (25-34); MEAN CORPUSCULAR HGB CONC 32 g/dL (32-36); MEAN CORPUSCULAR VOLUME 83 fL (80-99); MEAN PLATELET VOLUME 10.9 fL (9.0-12.2); MONOCYTES # (AUTO) 0.8 10^3/uL (0.0-1.0); MONOCYTES % (AUTO) 7 % (0-12); NEUTROPHILS # (AUTO) 7.3 10^3/uL (1.8-7.8); NEUTROPHILS % (AUTO) 66 % (42-75); PLATELET COUNT 212 10^3/uL (130-400); WHITE BLOOD COUNT 11.1 10^3/uL (4.3-11.0)
--- NOTE | 2023-06-08 07:08 | Postpartum Progress Note ---
Note Note Day # 1 Subjective: Patient is without complaints. Ambulating, voiding. Tolerating a regular diet without nausea or vomiting. Normal lochia. Pain is well controlled with oral pain medications. Objective: Physical Exam: General - Alert and oriented, no apparent distress Abdomen - Soft, appropriately tender to palpation, non-distended, fundus firm at umbilicus Extremities - no edema, negative Maxim's bilaterally Incision- c/d/i Assessment: POD 1 RLTCS Acute blood loss anemia Plan: Routine care. Encourage breast feeding. Encourage ambulation. Ferrous sulfate supplementation. Plan for discharge tomorrow, patient may consider dc today due to family illness Vitals - Labs Vital Signs - I&O Vital Signs Date Time Temp Pulse Resp B/P (MAP) Pulse Ox O2 Delivery O2 Flow Rate FiO2 06/08/23 04:59 37.0 83 18 100/61 (74) 99 Room Air 06/08/23 02:18 97 Room Air 06/08/23 00:28 36.8 74 18 106/57 (73) 96 Room Air 06/07/23 22:30 98 Room Air 06/07/23 20:20 37.2 77 18 127/72 (90) 96 Room Air 06/07/23 18:46 98 Room Air 06/07/23 15:26 37.0 74 18 126/58 (80) 96 Room Air 06/07/23 14:57 97 Room Air 0.00 06/07/23 12:30 36.8 82 18 117/57 (77) 96 Room Air 06/07/23 10:56 96 Room Air 0.00 06/07/23 10:45 96 Room Air 06/07/23 10:45 36.8 75 18 116/58 (77) 96 Room Air 06/07/23 10:00 36.5 18 110/67 (81) 98 Room Air 06/07/23 09:45 36.2 18 110/85 (93) 96 Room Air 06/07/23 09:30 36.4 18 138/76 (96) 98 Room Air 06/07/23 09:15 36.4 18 116/74 (88) 97 Room Air 06/07/23 09:02 36.6 18 116/51 (72) 98 Room Air I & O 06/08/23 07:00 Intake Total 2850 ml Output Total 2250 ml Balance 600 ml Labs Laboratory Tests 12/7/23 07:15: Influenza Type A (RT-PCR) Not Detected, Influenza Type B (RT-PCR) Not Detected, SARS-CoV-2 RNA (RT-PCR) Not Detected 06/08/23 06:36: White Blood Count 11.1H, Red Blood Count 4.15, Hemoglobin 11.1L, Hematocrit 34L, Mean Corpuscular Volume 83, Mean Corpuscular Hemoglobin 27, Mean Corpuscular Hemoglobin Concent 32, Red Cell Distribution Width 15.0H, Platelet Count 212, Mean Platelet Volume 10.9, Immature Granulocyte % (Auto) 1, Neutrophils (%) (Auto) 66, Lymphocytes (%) (Auto) 22, Monocytes (%) (Auto) 7, Eosinophils (%) (Auto) 3, Basophils (%) (Auto) 1, Neutrophils # (Auto) 7.3, Lymphocytes # (Auto) 2.4, Monocytes # (Auto) 0.8, Eosinophils # (Auto) 0.4H, Basophils # (Auto) 0.1, Immature Granulocyte # (Auto) 0.1 VANCE CARRILLO DO Jun 08, 2023 07:08
--- NOTE | 2023-06-08 07:09 | Discharge Inst-Women's Service ---
Discharge Inst-Women's Serv Depart Medication/Instructions New, Converted or Re-Newed RX: Transmitted to Pharmacy Final Diagnosis POD 2 RLTCS Problems Reviewed?: Yes Consults/Follow Up Additional Follow Up: Yes Orders/Referrals Dr. Atwood in 7-[address] Meyer in 6 weeks Activity Activity: Activity as Tolerated Driving Instructions: No Driving for 1 Week NO SMOKING: NO SMOKING Nothing Inside Vagina: No Douching, No Olive, No Tampons Diet Discharge Diet: No Restrictions Symptoms to Report to : Bleeding Excessive, Pain Increased, Fever Over 101 Degrees F, Vaginal Bleeding Increase, Questions/Concerns For Any Problems or Questions: Contact Your Physician Skin/Wound Care Infection Signs and Symptoms: Increased Redness, Foul Odor of Wound, Increased Drainage, Skin Itchy or Has a Rash, Increased Swelling, Temperature Above 101 F Operative Area Clean and Dry: Keep Incision Clean/Dry Stitches/Nahid/Dermabond: Dermabond, Care of Stitches Bathing Instructions: VANCE Martin DO Jun 08, 2023 07:09
[2023-06-08] MEDS ORDERED: IBUP-844 PO (07:10)
[2023-06-08] MEDS ORDERED: ACHD5005 PO (07:10)
[2023-06-08] MEDS ORDERED: DOCU100C37 PO (07:10)
[2023-06-08 08:00] VITALS: BP 113/76
[2023-06-08] MEDS: IBUPROFEN 600 MG TABLET PO SCH ×3 (09:44→21:42)
[2023-06-08] MEDS: DOCUSATE SODIUM 100 MG CAPSULE PO SCH ×2 (09:44→21:42)
[2023-06-08 12:00] VITALS: BP 118/78
[2023-06-08 16:00] VITALS: BP 112/76
[2023-06-08] MEDS: HYDROcodone/ACETAMINOPHEN 5 MG/325 MG TABLET PO PRN ×2 (16:46→23:40)
[2023-06-08 21:44] VITALS: BP 128/62
[2023-06-09] MEDS: IBUPROFEN 600 MG TABLET PO SCH ×2 (05:47→11:27)
[2023-06-09 05:48] VITALS: BP 133/59
[2023-06-09 08:00] VITALS: BP 136/80
[2023-06-09] MEDS: DOCUSATE SODIUM 100 MG CAPSULE PO SCH (09:44)
--- NOTE | 2023-06-09 09:56 | Short Stay Summary ---
Discharge Summary Hospital Course Final Diagnosis: 39 Weeks, Prior Hospital Course Date of Admission: Jun 07, 2023 at 05:13 Admission Diagnosis : Family Physician/Provider: Jeff Tran MD Date of Discharge: 06/09/23 Discharge Diagnosis: 39 weeks, Prior , Hospital Course: Patient underwent uncomplicated repeat productive of viable 6 lbs. 7 onz. female with 9/9. Uncomplicated post-op course, discharged on post-op day #2. Will follow up with Dr. Atwood within 1-2 weeks for incision check, call for appointment. Labs and Pending Lab Test: Microbiology 06/07/23 MRSA Screen - Final, Complete MRSA not isolated Home Meds Active Docusate Sodium 100 Mg Capsule 100 Mg PO BID PRN Hydrocodone-Acetamin 5-325 mg (Hydrocodone/Acetaminophen) 5 Mg-325 Mg Tablet 1-2 Ea PO Q6HR PRN Ibu (Ibuprofen) 600 Mg Tablet 600 Mg PO Q6H Albuterol Sulfate 2.5 Mg/3 Ml (0.083 %) Vial.neb 2.5 Mg INH Q4H 30 Days Reported Acetaminophen Extra Strength (Acetaminophen) 500 Mg Tablet 500 Mg PO Q8H PRN MDD 1500 Zithromax Tri-Zen (Azithromycin) 500 Mg Tablet 500 Mg PO DAILY Prenata Chewable Tablet ( Vit37/Iron/Folic Acid) 29 Mg Iron-1 Mg Tab.chew 1 Each PO Assessment/Pt Instructions 39 weeks Prior Discharge Instructions Discharge Diet: No Restrictions Activity as Tolerated: Yes Discharge Physical Examination General Appearance: Alert, Oriented X3 Abdominal: Soft, No Tenderness, Other (Uterus firm, non-tender and 2 cm below umbilicus, incision clean and dry no erythema) Extremities: No Clubbing, No Edema, No Tenderness/Swelling Skin: No Rashes Neuro: Normal Gait Psych/Mental Status: Mental Status NL Allergies: Coded Allergies: Penicillins (Unverified Allergy, Unknown, 05/31/23) Reports that her brother is allergic, so she doesn't want to take a chance with it. Discharge Summary Date of Admission Jun 07, 2023 at 05:13 Date of Discharge 06/09/23 Discharge Date: Jun 09, 2023 Discharge Time: 10:00 Admission Diagnosis 39 Weeks Prior Consults/Procedures Consulations None Procedures Spinal Anesthesia Discharge Diagnosis 39 Weeks Prior DYAN JOHNSON DO Jun 09, 2023 09:52
[2023-06-09 12:19] VITALS: BP 136/80
== END 2023-06-09 13:16 | disposition home or self-care (01) | DRG 787 ==
LOC: LDRP 05:13
PROVIDERS: ADMIT Obstetrics & Gynecology; ATTEND Obstetrics & Gynecology
PROC: 10D00Z1 Extraction of Products of Conception, Low, Open Approach (ICD-10-PCS; principal; 2023-06-07 07:59)
DX: O34.211 Maternal care for low transverse scar from previous cesarean delivery (principal); D62 Acute posthemorrhagic anemia; Z3A.39 39 weeks gestation of pregnancy; Z37.0 Single live birth; Z88.0 Allergy status to penicillin; Z88.1 Allergy status to other antibiotic agents; O90.81 Anemia of the puerperium
CPT/HCPCS: 36415; 81000; 85025; 86850; 86900; 86901; 87081; 87636; 94640; 94664; 94760